=== PATIENT | female | born 1980 | race Hispanic/Latino ===

== ENCOUNTER 2019-08-18 14:28 | Emergency (ER) | payer BC ==
[~2019-08-18] VITALS: Ht 157.5 cm; Wt 79.4 kg
[~2019-08-18 14:28] MED LIST: ATENOLOL50 MG PO; LORTAB 7.5-5001 EACH PO; SERTRALINE HCL50 MG PO; TYLENOL WITH C1 EACH PO
--- OUTSIDE RECORDS SUMMARY | 2019-08-18 14:33 | XMS REPORT | Summary of Care ---
Author Author [facility] Organization 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 [address] [address]- [phone] Vital Signs No data available for this section Problem List Condition Effective Dates Status Health Status Informant OAB (overactive Active bladder)(Confirmed) BMI Active 32.0-32.9,adult(Conf irmed) Body mass index Active (BMI) 31.0-31.9, adult(Confirmed) Hypertension(Confirm Active ed) Hypertriglyceridemia Active (Confirmed) Anxiety and Active depression(Confirmed ) Urinary Active incontinence(Confirm ed) Allergies, Adverse Reactions, Alerts No Known Medication Allergies Medications No data available for this section Results No data available for this section Immunizations Given and Recorded Vaccine Date Status Refusal Reason influenza virus vaccine, inactivated1 10/14/18 Given 1Result Comment: Patient wait 15 min with no reaction. Procedures Procedure Date Related Diagnosis Body Site Status Laparoscopic cholecystectomy 05/25/18 Completed Papanicolaou smear taken 03/25/18 Completed Repair of incisional hernia 2016 Completed Total hysterectomy 04/25/15 Completed Social History Social History Type Response Exercise Exercise type: Walking. 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 Smoking Status Former smoker; Exposure to Tobacco Smoke None; Cigarette Smoking Last 365 Days No; Reg Smoking Cessation Counseling No entered on: 03/30/19 Assessment and Plan No data available for this section
--- OUTSIDE RECORDS SUMMARY | 2019-08-18 14:33 | XMS REPORT | Summary of Care ---
Author Author [facility] Organization [facility] Address Unknown Phone Unavailable Encounter EDNA Morgan(MIGUEL A) [id number] Date(s): 04/28/18 - 04/28/18 [facility] [address] [place] [address]- [phone] Discharge Disposition: Home or Self Care Attending Physician: Lillian Killian DO Referring Physician: Lillian Killian DO Vital Signs No data available for this section Problem List Condition Effective Dates Status Health Status Informant OAB (overactive Active bladder)(Confirmed) BMI Active 32.0-32.9,adult(Conf irmed) Hypertension(Confirm Active ed) Hypertriglyceridemia Active (Confirmed) Depression(Confirmed Active ) Vaginal Active itching(Confirmed) Umbilical Active discharge(Confirmed) Urinary Active incontinence(Confirm ed) Allergies, Adverse Reactions, Alerts No data available for this section Medications No data available for this section Results No data available for this section Immunizations No data available for this section Procedures Procedure Date Related Diagnosis Body Site Status Repair of incisional hernia 2015 Completed Total hysterectomy 04/25/15 Completed Papanicolaou smear taken 2014 Completed Social History Social History Type Response Exercise Exercise type: Walking. 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 Smoking Status Former smoker; Exposure to Tobacco Smoke None; Cigarette Smoking Last 365 Days No; Reg Smoking Cessation Counseling No entered on: 04/16/18 Assessment and Plan No data available for this section
--- OUTSIDE RECORDS SUMMARY | 2019-08-18 14:33 | XMS REPORT | Summary of Care ---
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
--- OUTSIDE RECORDS SUMMARY | 2019-08-18 14:33 | XMS REPORT | Summary of Care ---
Author Author [facility] Organization [facility] Address Unknown Phone Unavailable Encounter HQ Encntr_aliyenny(FIN) [id number] Date(s): 03/24/18 - 03/24/18 [facility] [address], [address] [place] [address]- [phone] Attending Physician: Lillian Killian DO Vital Signs No data available for this section Problem List Condition Effective Dates Status Health Status Informant OAB (overactive Active bladder)(Confirmed) BMI Active 32.0-32.9,adult(Conf irmed) Hypertension(Confirm Active ed) Hypertriglyceridemia Active (Confirmed) Depression(Confirmed Active ) Urinary Active incontinence(Confirm ed) Allergies, Adverse Reactions, Alerts Substance Reaction Severity Status azithromycin1 Active 1abd pain, diarrhea Medications No data available for this section Results No data available for this section Immunizations No data available for this section Procedures Procedure Date Related Diagnosis Body Site Status Total hysterectomy 04/25/15 Completed Papanicolaou smear taken 2014 Completed Social History Social History Type Response Exercise Exercise type: Walking. 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 Smoking Status Former smoker; Exposure to Tobacco Smoke None; Cigarette Smoking Last 365 Days No; Reg Smoking Cessation Counseling No entered on: 03/25/18 Assessment and Plan No data available for this section
--- OUTSIDE RECORDS SUMMARY | 2019-08-18 14:33 | XMS REPORT | Summary of Care ---
Author Author [facility] Organization [facility] Address Unknown Phone Unavailable Encounter EDNA Morgan(FIN) [id number] Date(s): 03/25/18 - 03/25/18 [facility] [address], [address] [place] [address]- [phone] Discharge Disposition: Home or Self Care Attending Physician: Lillian Killian DO Vital Signs Most recent to 1 oldest [Reference Range]: Height 152.4 cm (03/25/18 8:10 AM) Temperature Oral 98.0 DegF [96.4-99.1 DegF] (03/25/18 8:10 AM) Blood Pressure 108/74 mmHg [90-140/60-90 mmHg] (03/25/18 8:10 AM) Respiratory Rate 14 BRMIN [14-20 BRMIN] (03/25/18 8:10 AM) Peripheral Pulse 74 bpm Rate [60-100 bpm] (03/25/18 8:10 AM) Weight 75.909 kg (03/25/18 8:10 AM) Body Mass Index 32.68 m2 (03/25/18 8:10 AM) Problem List Condition Effective Dates Status Health Status Informant OAB (overactive Active bladder)(Confirmed) BMI Active 32.0-32.9,adult(Conf irmed) Hypertension(Confirm Active ed) Hypertriglyceridemia Active (Confirmed) Depression(Confirmed Active ) Urinary Active incontinence(Confirm ed) Allergies, Adverse Reactions, Alerts Substance Reaction Severity Status azithromycin1 Active 1abd pain, diarrhea Medications metroNIDAZOLE 500 mg oral tablet 500 mg=1 tab, PO, BID, do not drink alcohol, X 7 day, # 14 tab, 0 Refill(s), Pha rmacy: [facility] Start Date: 03/27/18 Stop Date: 04/03/18 Status: Ordered oxybutynin 5 mg oral tablet 5 mg=1 tab, PO, BID, # 60 tab, 5 Refill(s), Pharmacy: [facility] [place] [facility] Start Date: 03/25/18 Status: Ordered Results No data available for this section [...]
--- OUTSIDE RECORDS SUMMARY | 2019-08-18 14:33 | XMS REPORT | Summary of Care ---
Author Author [facility] Organization [facility] Address Unknown Phone Unavailable Care Team Providers Care Media Relations Intern Name Role Phone Lillian Killian PCP Encounter HQ Cathy([facility]) [id number] Date(s): 03/30/19 - 03/30/19 [facility] [address] [address]- Discharge Disposition: Home or Self Care Attending Physician: Lillian Killian DO Vital Signs Most recent to 1 oldest [Reference Range]: Height 154.94 cm (03/30/19 8:19 AM) Temperature Oral 98.0 DegF [96.4-99.1 DegF] (03/30/19 8:19 AM) Blood Pressure 127/86 mmHg [90-140/60-90 mmHg] (03/30/19 8:19 AM) Respiratory Rate 14 BRMIN [14-20 BRMIN] (03/30/19 8:19 AM) Peripheral Pulse 85 bpm Rate [60-100 bpm] (03/30/19 8:19 AM) Weight 75.909 kg (03/30/19 8:19 AM) Body Mass Index 31.62 m2 (03/30/19 8:19 AM) Problem List Condition Effective Dates Status Health Status Informant OAB (overactive Active bladder)(Confirmed) BMI Active 32.0-32.9,adult(Conf irmed) Body mass index Active (BMI) 31.0-31.9, adult(Confirmed) Hypertension(Confirm Active ed) Hypertriglyceridemia Active (Confirmed) Anxiety and Active depression(Confirmed ) Urinary Active incontinence(Confirm ed) Allergies, Adverse Reactions, Alerts No Known Medication Allergies Medications No Known Medications Results No data available for this section Immunizations Given and Recorded Vaccine Date Status Refusal Reason influenza virus vaccine, inactivated1 10/14/18 Given 1Result Comment: Patient wait 15 min with no reaction. Procedures Procedure Date Related Diagnosis Body Site Status Laparoscopic cholecystectomy 05/25/18 Completed Papanicolaou smear taken 03/25/18 Completed Repair of incisional hernia 2015 Completed Total hysterectomy 04/25/15 Completed Social History [...]
--- OUTSIDE RECORDS SUMMARY | 2019-08-18 14:33 | XMS REPORT | Continuity of Care Document ---
Author Author [facility] Organization [facility] Address Unknown Phone Unavailable Care Team Providers Care Deck Cadet Name Role Phone [facility] Unavailable Unavailable Problems Problem Status Onset Date Classification Date Reported Comments Source UNK Active 05/14/2018 [facility] ABDOMINAL DISCOMFORT Active 04/18/2018 [facility] Bladder muscle dysfunction - overactive (disorder) Active Problem 06/17/2019 [facility] [place] Body mass index 30+ - obesity (finding) Active Problem 06/17/2019 [facility] [place],[facility] Hypertensive disorder, systemic arterial (disorder) Active Problem 06/17/2019 [facility] [place],[facility] Hypertriglyceridemia (disorder) Active Problem 06/17/2019 [facility] [place],[facility] Depressive disorder (disorder) Active Problem 03/21/2019 Medical [facility] Urinary incontinence (finding) Active Problem 06/17/2019 [facility] Pruritus of vagina (disorder) Active Problem 06/05/2018 Medical [facility] Umbilical discharge (finding) Active Problem 06/05/2018 [facility] Mixed anxiety and depressive disorder (disorder) Active Problem 06/17/2019 [facility] [place] Finding of body mass index (finding) Active Problem 06/17/2019 Medical [facility] [place] Medications Medication Details Route Status Patient Instructions Ordering Provider Order Date Source Lidocaine Viscous 2% mucous membrane solution 1 appl, TOP, QID, PRN Mouth Pain, X 7 day, # 1 btl, 0 Refill(s), Pharmacy: [facility] [place] [facility]3 Active 03/18/2019 [facility] Penicillin V Potassium 500 MG Oral Tablet 500 mg=1 tab, PO, Q12H, X 10 day, # 20 tab, 0 Refill(s), Pharmacy: [facility] [place] #3 Active 03/18/2019 [facility] Atenolol 25 MG Oral Tablet =1 tab, PO, Daily, # 90 ea, Refill(s) 1, Pharmacy: [facility] [place] #3 Active 12/18/2018 [facility] Terbinafine hydrochloride 10 MG/ML Topical Cream 1 appl, TOP, BID, X 14 day, # 30 gm, 1 Refill(s), Pharmacy: [facility] [place] #3 No Longer Active 07/27/2018 [facility] ciprofloxacin 500 mg oral tablet 500 mg=1 tab, PO, Q12H, for UTI, X 3 day, # 6 tab, 0 Refill(s), Pharmacy: [facility] [place] #3 No Longer Active 07/22/2018 [facility] Metronidazole 500 MG Oral Tablet 500 mg=1 tab, PO, BID, do not drink alcohol, X 7 day, # 14 tab, 2 Refill(s), Pharmacy: [facility] [place] #3 No Longer Active 07/22/2018 [facility] Ketoconazole 20 MG/ML Topical Cream 1 appl, TOP, Daily, X 6 week, # 30 gm, 1 Refill(s), Pharmacy: [facility] [place] #3 No Longer Active 07/22/2018 [facility] Oxycodone Hydrochloride 5 MG Oral Tablet 10 mg, Route: PO, Drug form: TAB, ONCE, Dosing Weight 75.455, kg, PRN Pain Score 7-10, Start date: 05/25/18 10:45:00 CDT Inactive 05/25/2018 [facility] Naloxone 0.1 mg, Route: SUB-Q, Q6H, Dosing Weight 75.455, kg, PRN Itching, Start date: 05/25/18 10:18:00 CDT, Duration: 30 day, Stop date: 06/24/18 10:17:00 CDT Inactive 05/25/2018 [facility] Ondansetron 4 mg, Route: IVP, ONCE, Dosing Weight 75.455, kg, PRN Nausea & Vomiting, Start date: 05/25/18 10:18:00 CDT Inactive 05/25/2018 [facility] Meperidine 12.5 mg, Route: IVP, Q30Min, Dosing Weight 75.455, kg, PRN Other -See Comment, For shivering, Start date: 05/25/18 10:18:00 CDT, Duration: 2 doses or times, Stop date: Limited # of times Inactive 05/25/2018 [facility] Fentanyl 25 microgram, Route: IVP, Q5Min, Dosing Weight 75.455, kg, PRN Pain Score 4-6, Priority: Routine, Start date: 05/25/18 10:18:00 CDT, Duration: 4 doses or times, Stop date: Limited # of times Inactive 05/25/2018 [facility] Oxycodone 5 mg, Route: NG, Drug form: LIQ, Q4H, Dosing Weight 75.455, kg, PRN Pain Score 4-6, Start date: 05/25/18 10:18:00 CDT, Duration: 30 day, Stop date: 06/24/18 10:17:00 CDT Inactive 05/25/2018 [facility] Albuterol 0.83 MG/ML Inhalant Solution 2.49 mg, Route: NEB, Q20Min, Dosing Weight 75.455, kg, PRN Wheezing, Priority: STAT, Start date: 05/25/18 10:18:00 CDT, Duration: 30 day, Stop date: 06/24/18 10:17:00 CDT Inactive 05/25/2018 [facility] Diphenhydramine 12.5 mg, Route: IVP, Drug form: INJ, Q6H, Dosing Weight 75.455, kg, PRN Itching, Start date: 05/25/18 10:18:00 CDT, Duration: 30 day, Stop date: 06/24/18 10:17:00 CDT Inactive 05/25/2018 [facility] Flumazenil 0.2 mg, Route: IVP, PRN, Dosing Weight 75.455, kg, PRN Benzodiazepine Reversal, Initial dose, Start date: 05/25/18 10:18:00 CDT, Duration: 30 day, Stop date: 06/24/18 10:17:00 CDT Inactive 05/25/2018 [facility] 72 HR Scopolamine 0.0139 MG/HR Transdermal Patch 1 patch, Route: TOP, Drug Form: ERFILM, Dosing Weight 75.455, kg, ONCE, Apply behind ear. Avoid use in elderly., Start date: 05/25/18 10:18:00 CDT, Stop date: 05/25/18 10:18:00 CDT Inactive 05/25/2018 [facility] Promethazine 6.25 mg, Route: IVPB, ONCE, Dosing Weight 75.455, kg, PRN Nausea & Vomiting, Start date: 05/25/18 10:18:00 CDT Inactive 05/25/2018 [facility] Hydromorphone 0.5 mg, Route: IVP, Q5Min, Dosing Weight 75.455, kg, PRN Pain Score 7-10, Start date: 05/25/18 10:18:00 CDT, Duration: 4 doses or times, Stop date: Limited # of times Inactive 05/25/2018 [facility] Acetaminophen 1,000 mg, Route: IVPB, Drug form: INJ, ONCE, Dosing Weight 75.455, kg, PRN Pain Score 1-3, Start date: 05/25/18 10:18:00 CDT Inactive 05/25/2018 [facility] dexamethasone (ANES) Route: IV, Drug form: INJ, ONCE, Stop date: 05/25/18 10:03:00 CDT Inactive 05/25/2018 [facility] ceFAZolin (ANES) Route: IV, Drug form: INJ, ONCE, Stop date: 05/25/18 10:03:00 CDT Inactive 05/25/2018 [facility] rocuronium (ANES) Route: IV, Drug form: INJ, ONCE, Stop date: 05/25/18 10:03:00 CDT Inactive 05/25/2018 [facility] fentaNYL (ANES) Route: IV, Drug form: INJ, ONCE, Stop date: 05/25/18 10:03:00 CDT Inactive 05/25/2018 [facility] propofol (ANES) Route: IV, Drug form: INJ, ONCE, Stop date: 05/25/18 10:03:00 CDT Inactive 05/25/2018 [facility] midazolam (ANES) Route: IV, Drug form: SOLN, ONCE, Stop date: 05/25/18 10:03:00 CDT Inactive 05/25/2018 [facility] lidocaine (ANES) Route: IV, Drug form: INJ, ONCE, Stop date: 05/25/18 10:03:00 CDT Inactive 05/25/2018 [facility] famotidine (ANES) Route: IV, Drug form: INJ, ONCE, Stop date: 05/25/18 10:03:00 CDT Inactive 05/25/2018 [facility] neostigmine (ANES) Route: IV, Drug form: INJ, ONCE, Stop date: 05/25/18 10:03:00 CDT Inactive 05/25/2018 [facility] ketOROLAC (ANES) IV, ONCE Inactive 05/25/2018 [facility] glycopyrrolate (ANES) Route: IV, Drug form: INJ, ONCE, Stop date: 05/25/18 10:03:00 CDT Inactive 05/25/2018 [facility] metoclopramide (ANES) Route: IV, Drug form: INJ, ONCE, Stop date: 05/25/18 10:03:00 CDT Inactive 05/25/2018 [facility] ePHEDrine (ANES) Route: IV, Drug form: INJ, ONCE, Stop date: 05/25/18 10:01:00 CDT Inactive 05/25/2018 [facility] Acetaminophen 300 MG / Codeine Phosphate 30 MG Oral Tablet [Tylenol with Codeine #3] 1 tab, PO, Q6H, PRN pain, X 7 day, # 28 tab, 0 Refill(s) Active 05/25/2018 [facility] Docusate Sodium 100 MG Oral Capsule [Colace] 100 mg=1 cap, PO, BID, PRN Constipation, # 20 cap, 0 Refill(s) Active 05/25/2018 [facility] Lactated Ringers Injection IV (ANES) 1000 mL Route: IV, Total Volume: 1,000, Start date: 05/25/18 8:57:00 CDT, Stop date: 05/25/18 9:57:00 CDT Inactive 05/25/2018 [facility] Lactated Ringers IV 1,000 mL 1,000 mL, Rate: 40 ml/hr, Infuse over: 25 hr, Route: IV, Dosing Weight 75.455 kg, Total Volume: 1,000, Start date: 05/25/18 8:30:00 CDT, Duration: 1 day, Stop date: 05/26/18 8:29:00 CDT, 1.84, m2 Inactive 05/25/2018 [facility] Ancef 2 gm, 100 mL, Route: IVPB, Drug form: INJ, ONCE, Dosing Weight 75.455, kg, Start date: 05/22/18 9:33:00 CDT, Stop date: 05/22/18 9:33:00 CDT, Surgical Prophylaxis Only; For patients Notes: Same as: Ancef Inactive 05/22/2018 [facility] Mupirocin 0.02 MG/MG Topical Ointment 1 appl, TOP, BID, X 7 day, # 22 gm, 1 Refill(s), Pharmacy: [facility] Pharm[facility] [place] #3 Active 04/16/2018 [facility] Clindamycin 20 MG/ML Vaginal Cream 1 appl, VAG, Bedtime, X 7 day, # 40 gm, 1 Refill(s), Pharmacy: [facility] [place] #3 Active 04/16/2018 [facility] Metronidazole 500 MG Oral Tablet 500 mg=1 tab, PO, BID, do not drink alcohol, X 7 day, # 14 tab, 0 Refill(s), Pharmacy: [facility] [place] #3 Active 03/27/2018 [facility] oxybutynin 5 mg oral tablet 5 mg=1 tab, PO, BID, # 60 tab, 5 Refill(s), Pharmacy: [facility] [place] #3 Active 03/25/2018 [facility] Allergies, Adverse Reactions, Alerts Substance Category Reaction Severity Reaction type Status Date Reported Comments Source azithromycin<sup>1</sup> Assertion Drug allergy Active abd pain, diarrhea [facility] No Known Medication Allergies Assertion Drug allergy [facility] Immunizations Immunization Date Given Site Status Last Updated Comments Source influenza virus vaccine, inactivated<sup>1</sup> 10/14/2018 Left Deltoid completed [facility] Result Comment: Patient wait 15 min with no reaction. [facility], [facility] Results Order Name Results Value Reference Range Date Interpretation Comments Source CHEM PANEL A/G Ratio 0.9 0.7 - 1.6 05/22/2018 [facility] CHEM PANEL Globulin 4.5 2.7 - 4.2 05/22/2018 [facility] CHEM PANEL B/C Ratio 22 6 - 25 05/22/2018 [facility] CHEM PANEL AGAP 11.4 10.0 - 20.0 05/22/2018 [facility] CHEM PANEL eGFR 123 05/22/2018 Result Comment: The eGFR is calculated using the CKD-EPI formula. In most young, healthy individuals the eGFR will be >90 mL/min/1.73m2. The eGFR declines with age. An eGFR of 60-89 may be normal in some populations, particularly the elderly, for whom the CKD-EPI formula has not been extensively validated. Use of the eGFR is not recommended in the following populations:

Individuals with unstable creatinine concentrations, including patients and those with serious co-morbid conditions.

Patients with extremes in muscle mass or diet.

The data above are obtained from the National Kidney Disease Education Program (NKDEP) which additionally recommends that when the eGFR is used in patients with extremes of body mass index for purposes of drug dosing, the eGFR should be multiplied by the estimated BMI. [facility] CHEM PANEL Glucose Lvl 94 70 - 99 05/22/2018 [facility] CHEM PANEL Total Protein 8.4 6.4 - 8.4 05/22/2018 [facility] CHEM PANEL Calcium Lvl 9.5 8.5 - 10.5 05/22/2018 [facility] CHEM PANEL Chloride Lvl 106 95 - 109 05/22/2018 [facility] CHEM PANEL CO2 28 24 - 32 05/22/2018 [facility] CHEM PANEL Sodium Lvl 141 135 - 145 05/22/2018 [facility] CHEM PANEL Potassium Lvl 4.4 3.5 - 5.1 05/22/2018 [facility] CHEM PANEL Creatinine Lvl 0.50 0.50 - 1.40 05/22/2018 [facility] CHEM PANEL BUN 11 7 - 22 05/22/2018 [facility] CHEM PANEL Albumin Lvl 3.9 3.5 - 5.0 05/22/2018 [facility] CHEM PANEL AST 13 0 - 37 05/22/2018 [facility] CHEM PANEL Alk Phos 101 39 - 136 05/22/2018 [facility] CHEM PANEL ALT 15 0 - 65 05/22/2018 [facility] CHEM PANEL Bili Total 0.3 0.2 - 1.3 05/22/2018 [facility] HEMATOLOGY Monocytes # 0.7 0.0 - 0.8 05/22/2018 [facility] HEMATOLOGY Basophils # 0.1 0.0 - 0.2 05/22/2018 [facility] HEMATOLOGY Eosinophils # 0.2 0.0 - 0.5 05/22/2018 [facility] HEMATOLOGY Lymphocytes # 2.8 1.0 - 5.5 05/22/2018 [facility] HEMATOLOGY Segs-Bands # 8.0 1.5 - 8.1 05/22/2018 [facility] HEMATOLOGY Segs 68.3 45.0 - 75.0 05/22/2018 [facility] Basophils 0.5 0.0 - 1.0 05/22/2018 [facility] Eosinophils 1.7 0.0 - 4.0 05/22/2018 [facility] Monocytes 5.8 2.0 - 12.0 05/22/2018 [facility] Lymphocytes 23.7 20.0 - 40.0 05/22/2018 [facility] WBC 11.7 3.7 - 10.4 05/22/2018 [facility] Hct 41.3 36.0 - 48.0 05/22/2018 [facility] Hgb 13.9 12.0 - 16.0 05/22/2018 [facility] RBC 4.71 4.20 - 5.40 05/22/2018 [facility] MCV 87.7 80.0 - 98.0 05/22/2018 [facility] MCHC 33.6 32.0 - 36.0 05/22/2018 [facility] MCH 29.4 27.0 - 31.0 05/22/2018 [facility] RDW 12.9 11.5 - 14.5 05/22/2018 [facility] MPV 7.4 7.4 - 10.4 05/22/2018 [facility] Platelet 366 133 - 450 05/22/2018 [facility] Pathology Reports No Data Provided for This Section Diagnostic Reports Report Value Date Source Breast Mammo Scrn CHERI incl CAD MA BILATERAL FIRST EVER DIGITAL SCREENING MAMMOGRAM WITH CAD: 06/12/2019 Current study was evaluated with a Computer Aided Detection (CAD) system. COMPARISON:No prior exams were available for comparison. TECHNIQUE: Mammographic views were obtained using digital acquisition. Current study was also evaluated with a Computer Aided Detection (CAD) system. FINDINGS: There are scattered fibroglandular densities in both breasts. No significant masses, calcifications, or other findings are seen in either breast. IMPRESSION: NEGATIVE RECOMMENDATION:There is no mammographic evidence of malignancy. A 1 year screening mammogram is recommended.(06/12/2020) This exam was interpreted at [id number] for YOSSI Mccartney 15. Professional services are provided by the [facility]. Kacy Villela M.D., ms/jodie:06/14/2019 08:55:30 Event Marketing Assistant(s): RT Tod(R)(M), [facility] letter sent: BI-RADS 1/2 Mammogram BI-RADS: 1 Negative 06/12/2019 [facility] Abdomen complete US Clinical Indication: Abdominal pain; Comparison: None TECHNIQUE: Grayscale and limited color sonographic evaluation of the abdomen was performed with standard technique. FINDINGS: LIVER: The visualized liver shows normal contour, size, and morphology with normal parenchymal echo texture. BILE DUCTS: The intrahepatic and extrahepatic bile ducts are not dilated with the common bile duct measuring 3 mm. The distal common bile duct is not well seen. GALLBLADDER: Cholelithiasis. There is no pericholecystic fluid or wall thickening. PANCREAS: The visualized pancreas appears unremarkable.. SPLEEN: The spleen is unremarkable and measures 9 cm. KIDNEY: The right kidney measures 10.6 cm. The left kidney measures 10.7 cm. There is normal renal contour and morphology, with normal parenchymal echotexture. There is no hydronephrosis. AORTA AND INFERIOR VENA CAVA: Visualized portions appear unremarkable. ASCITES: There is no right abdominal ascites. IMPRESSION: 1. Cholelithiasis without sonographic evidence of acute cholecystitis. 2. No other sonographic abnormalities of the abdomen. SL: [id number] 04/28/2018 [facility] Consultation Notes No Data Provided for This Section Discharge Summaries No Data Provided for This Section History and Physicals No Data Provided for This Section Vital Signs Vital Sign Value Date Comments Source BMI Calculated 31.62 03/30/2019 [facility] Weight 75.909 03/30/2019 [facility] Height 154.94 cm 03/30/2019 [facility] Respitory Rate 14 03/30/2019 [facility] Heart Rate 85 03/30/2019 [facility] Temperature Oral (F) 98.0 F 03/30/2019 [facility] Systolic (mm Hg) 127 03/30/2019 [facility] Diastolic (mm Hg) 86 03/30/2019 [facility] Height 154.94 cm 03/18/2019 [facility] Weight 76.818 03/18/2019 [facility] BMI Calculated 32 03/18/2019 [facility] Respitory Rate 15 03/18/2019 [facility] Temperature Oral (F) 98.5 F 03/18/2019 [facility] Heart Rate 97 03/18/2019 [facility] Systolic (mm Hg) 123 03/18/2019 [facility] Diastolic (mm Hg) 86 03/18/2019 [facility] Heart Rate 93 10/14/2018 [facility] Temperature Oral (F) 97.7 F 10/14/2018 [facility] Respitory Rate 14 10/14/2018 [facility] BMI Calculated 30.48 10/14/2018 [facility] Weight 73.182 10/14/2018 [facility] Systolic (mm Hg) 128 10/14/2018 [facility] Diastolic (mm Hg) 87 10/14/2018 [facility] Height 154.94 cm 10/14/2018 [facility] Weight 73.182 07/22/2018 [facility] BMI Calculated 30.48 07/22/2018 [facility] Height 154.94 cm 07/22/2018 [facility] Respitory Rate 14 07/22/2018 [facility] Temperature Oral (F) 98.2 F 07/22/2018 [facility] Systolic (mm Hg) 135 07/22/2018 [facility] Diastolic (mm Hg) 88 07/22/2018 [facility] Heart Rate 92 07/22/2018 [facility] Weight 75.057 06/02/2018 [facility] Height 154.94 cm 06/02/2018 [facility] BMI Calculated 31.27 06/02/2018 [facility] Systolic (mm Hg) 116 06/02/2018 [facility] Diastolic (mm Hg) 81 06/02/2018 [facility] Heart Rate 72 06/02/2018 [facility] Temperature Oral (F) 97.9 F 06/02/2018 [facility] Systolic (mm Hg) 124 05/25/2018 [facility] Diastolic (mm Hg) 70 05/25/2018 [facility] Systolic (mm Hg) 114 05/25/2018 [facility] Diastolic (mm Hg) 69 05/25/2018 [facility] Systolic (mm Hg) 117 05/25/2018 [facility] Diastolic (mm Hg) 70 05/25/2018 [facility] Respitory Rate 17 05/25/2018 [facility] Respitory Rate 17 05/25/2018 [facility] Respitory Rate 14 05/25/2018 [facility] Temperature Oral (F) 98.2 F 05/22/2018 [facility] Heart Rate 76 05/22/2018 [facility] Weight 75.455 05/22/2018 [facility] Height 157.48 cm 05/22/2018 [facility] BMI Calculated 30.43 05/22/2018 [facility] Temperature Oral (F) 98.0 F 05/14/2018 [facility] Heart Rate 75 05/14/2018 [facility] Weight 76.364 05/14/2018 [facility] BMI Calculated 31.81 05/14/2018 [facility] Systolic (mm Hg) 130 05/14/2018 [facility] Diastolic (mm Hg) 83 05/14/2018 [facility] Height 154.94 cm 05/14/2018 [facility] Respitory Rate 14 04/16/2018 [facility] Temperature Oral (F) 97.8 F 04/16/2018 [facility] Heart Rate 81 04/16/2018 [facility] Height 157.48 cm 04/16/2018 [facility] BMI Calculated 30.45 04/16/2018 [facility] Weight 75.511 04/16/2018 [facility] Systolic (mm Hg) 122 04/16/2018 [facility] Diastolic (mm Hg) 86 04/16/2018 [facility] Height 152.4 cm 03/25/2018 [facility] Weight 75.909 03/25/2018 [facility] BMI Calculated 32.68 03/25/2018 [facility] Heart Rate 74 03/25/2018 [facility] Temperature Oral (F) 98.0 F 03/25/2018 [facility] Systolic (mm Hg) 108 03/25/2018 [facility] Diastolic (mm Hg) 74 03/25/2018 [facility] Respitory Rate 14 03/25/2018 [facility] Encounters Location Location Details Encounter Type Encounter Number Reason For Visit Attending Provider ADM Date DC Date Status Source Outpatient [id number] LANRE JOSEPH 03/24/2017 Active [facility] Outpatient [id number] LANRE GARCIAH 06/20/2017 Active [facility] Outpatient [id number] LANRE GARCIAH 03/24/2018 Active [facility] [id number] Lanre Garciah 03/24/2018 03/24/2018 [facility] Outpatient [id number] LANRE GARCIAH 03/25/2018 Active [facility] Outpatient [id number] Lanre Garciah 03/25/2018 03/26/2018 [facility] Outpatient [id number] LANRE GARCIAH 04/16/2018 Active [facility] Outpatient [id number] Lanre Garciah 04/16/2018 04/17/[address] [facility] Outpatient [id number] Lanre Joseph 04/28/2018 04/29/2018 [facility] Primary Care [facility] Phone Message [phone] 05/01/2018 05/02/2018 [facility] Outpatient [id number] THOMAS LE 05/14/2018 Active [facility] General Surgery [facility] Outpatient [id number] Thomas Le 05/14/2018 05/15/2018 [facility] Outpatient [id number] THOMAS ANDRADE 05/25/2018 Active [facility] Day Surgery [id number] Guzman Le 05/25/2018 05/25/2018 [facility] Outpatient [id number] GUZMAN LE 06/02/2018 Active [facility] Outpatient [id number] Guzman Lupe 06/02/2018 06/03/2018 [facility] Outpatient [id number] LANRE JOSEPH 07/22/2018 Active [facility] Primary Care [facility] Outpatient [id number] Lanre Joseph 07/22/2018 07/23/2018 [facility] Outpatient [id number] LANRE JOSEPH 10/14/2018 Active [facility] Primary Care [facility] Outpatient [id number] Lanre Joseph 10/14/2018 10/15/2018 [facility] Outpatient [id number] Lanre Joseph 03/18/2019 Active [facility] Primary Care [facility] Outpatient [id number] Lanre Joseph 03/18/2019 03/19/2019 [facility] Outpatient [id number] Lanre Joseph 03/30/2019 Active [facility] Primary Care [facility] Outpatient [id number] Lanre Joseph 03/30/2019 03/31/2019 [facility] Primary Care [facility] Between Visit [id number] 03/31/2019 04/01/2019 [facility] [place] Between Visit [id number] 04/03/2019 04/04/2019 [facility] [place] [facility] Diag Services [id number] Lanre Joseph 06/12/2019 06/13/2019 [facility] [place] [facility] [place] Between Visit [id number] 06/14/2019 06/15/2019 [facility] Procedures Procedure Code Date Perfomer Comments Source Laparoscopic cholecystectomy [id number] 05/25/2018 [facility], [facility] Papanicolaou smear taken [id number] 03/25/2018 [facility], [facility], [place] Repair of incisional hernia [id number] 12/01/2015 [facility], [facility] Foss, [place] Total hysterectomy [id number] 04/25/2015 [facility], [facility] Assessment and Plan Assessment and Plan Date Source Extracted from:Title: Clinical Document Author: Thomas Andrade MD Date: 05/25/18 DATE OF PROCEDURE: 05/25/2018. PREOPERATIVE DIAGNOSIS: Symptomatic gallstone. POSTOPERATIVE DIAGNOSIS: Symptomatic gallstone. TECHNICAL PROCEDURE PERFORMED: Laparoscopic cholecystectomy. SURGEON: Thomas Andrade M.D. ANESTHESIA: General endotracheal. SURGICAL WOUND CLASSIFICATION: Clean contaminate. OPERATIVE TIME: 30 minutes. ESTIMATED BLOOD LOSS: Minimal. FLUID REPLACEMENT: Per anesthesia. SPECIMENS SENT FOR PATHOLOGY: Gallbladder. COMPLICATIONS: None. FINDINGS: 1. Gallstones. 2. Well-visualized critical view. CONDITION: To recovery, stable. POSTOPERATIVE PLAN: To the floor INDICATIONS: A 37-year-old lady that presented to my general surgery clinic with abdominal pain. At this time, the history and physical as well as laboratory studies was consistent with diagnosis of symptomatic gallstones, therefore, the option of laparoscopic versus open cholecystectomy was offered to the patient. Risks and benefits of the procedure were explained and the patient voiced understanding and consented to procedure. OPERATIVE NARRATIVE: Patient was taken the operating room, placed on the operating table, intubated by anesthesia. The abdomen was prepped and draped in the usual sterile fashion. A timeout was called and the correct patient, as well as procedure was verified. The patient had SCDs on for thromboembolic prophylaxis and received antibiotics within 1 hour of the incision. Due to her history of previous umbilical hernia repair with mesh, we accessed the abdomen through the right upper quadrant using a 5 mm [employer] first entry trocar under direct visualization. CO2 gas was insufflated until 15 mmHg was achieved. A 1 cm trocar was then placed in the epigastrium and 0.5 cm trochars were placed at the umbilicus and right para umbilical regions. The gallbladder was identified. It was grasped at the fundus and retracted to the head, infundibulum was identified, grasped and retracted towards the legs, exposing the triangle of Calot. The cystic duct was identified, it was dissected out from all surrounding structures, clipped proximally 3 times, distally once, transected in between. Of note, a well visualized critical view was identified; therefore we bypassed cholangiogram. The dissection continued to identify the cystic artery, it was dissected out from all surrounding structures, clipped proximally twice, distally once, and transected in between. The gallbladder was then elevated off the liver bed using electrocautery. It was placed in the Endopouch bag and removed from the abdomen through the epigastric port. The liver bed was inspected, all residual bleeding was identified and controlled. The abdomen was irrigated with copious amounts water until clear return was achieved. The patient was placed flat and all residual irrigation was suctioned out. The pneumoperitoneum was decompressed and the fascia at the epigastric port site was closed using 0 Vicryl in a [id number] manner, and the skin was closed using 4-0 Monocryl in running subcuticular manner. The skin in the 5-mm ports were closed using 4-0 Monocryl in simple U-stitch manner. The patient was extubated in the operating room and transferred to recovery in stable condition. All instrument and laparotomy counts were correct. 05/25/2018 [facility] Plan of Care No Data Provided for This Section Social History Social History Date Source Social History TypeResponse Exercise Exercise type: Walking. 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 Smoking Status Former smoker; Exposure to Tobacco Smoke None; Cigarette Smoking Last 365 Days No; Reg Smoking Cessation Counseling No entered on: 03/30/19 03/25/2018 [facility] Social History TypeResponse Exercise Exercise type: Walking. 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 Smoking Status Former smoker; Exposure to Tobacco Smoke None; Cigarette Smoking Last 365 Days No; Reg Smoking Cessation Counseling No entered on: 05/22/18 03/25/2018 [facility] Social History TypeResponse Exercise Exercise type: Walking. 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 Smoking Status Former smoker; Exposure to Tobacco Smoke None; Cigarette Smoking Last 365 Days No; Reg Smoking Cessation Counseling No entered on: 03/30/19 03/25/2018 [facility] Family History No Data Provided for This Section Advance Directives No Data Provided for This Section Functional Status No Data Provided for This Section
--- OUTSIDE RECORDS SUMMARY | 2019-08-18 14:33 | XMS REPORT | Summary of Care ---
Author Author [facility] Organization [facility] Address Unknown Phone Unavailable Encounter HQ Cathy(FIN) [id number] Date(s): 10/14/18 - 10/14/18 [facility] [address] [facility] [address] [place] [address]- Discharge Disposition: Home or Self Care Attending Physician: Lillian Killian DO Vital Signs Most recent to 1 oldest [Reference Range]: Height 154.94 cm (10/14/18 1:17 PM) Temperature Oral 97.7 DegF [96.4-99.1 DegF] (10/14/18 1:17 PM) Blood Pressure 128/87 mmHg [90-140/60-90 mmHg] (10/14/18 1:17 PM) Respiratory Rate 14 BRMIN [14-20 BRMIN] (10/14/18 1:17 PM) Peripheral Pulse 93 bpm Rate [60-100 bpm] (10/14/18 1:17 PM) Weight 73.182 kg (10/14/18 1:17 PM) Body Mass Index 30.48 m2 (10/14/18 1:17 PM) Problem List Condition Effective Dates Status Health Status Informant OAB (overactive Active bladder)(Confirmed) BMI Active 32.0-32.9,adult(Conf irmed) Body mass index Active (BMI) 31.0-31.9, adult(Confirmed) Hypertension(Confirm Active ed) Hypertriglyceridemia Active (Confirmed) Anxiety and Active depression(Confirmed ) Urinary Active incontinence(Confirm ed) Allergies, Adverse Reactions, Alerts No Known Medication Allergies Medications atenolol 25 mg oral tablet =1 tab, PO, Daily, # 90 ea, Refill(s) 1, Pharmacy: [facility] Pharmacy [place] #3 Start Date: 12/18/18 Status: Ordered Results No data available for [...]
--- OUTSIDE RECORDS SUMMARY | 2019-08-18 14:33 | XMS REPORT | Summary of Care ---
Author Author [facility] Organization [facility] Address Unknown Phone Unavailable Care Team Providers Care [employer] D[employer] Name Role Phone Lillian Killian PCP Encounter HQ Rabiantr_malgorzata(FIN) [id number] Date(s): 04/03/19 - 04/04/19 [facility] [address] [address]- [phone] Vital Signs No data available for this [...]
--- OUTSIDE RECORDS SUMMARY | 2019-08-18 14:33 | XMS REPORT | Summary of Care ---
Author Author [facility] Organization [facility] Address Unknown Phone Unavailable Encounter EDNA Morgan(FIN) [id number] Date(s): 04/16/18 - 04/16/18 [facility] [address] [facility], [address] [place] [address]- [phone] Discharge Disposition: Home or Self Care Attending Physician: Lillian Killian DO Vital Signs Most recent to 1 oldest [Reference Range]: Height 157.48 cm (04/16/18 7:54 AM) Temperature Oral 97.8 DegF [96.4-99.1 DegF] (04/16/18 7:54 AM) Blood Pressure 122/86 mmHg [90-140/60-90 mmHg] (04/16/18 7:54 AM) Respiratory Rate 14 BRMIN [14-20 BRMIN] (04/16/18 7:54 AM) Peripheral Pulse 81 bpm Rate [60-100 bpm] (04/16/18 7:54 AM) Weight 75.511 kg (04/16/18 7:54 AM) Body Mass Index 30.45 m2 (04/16/18 7:54 AM) Problem List Condition Effective Dates Status Health Status Informant OAB (overactive Active bladder)(Confirmed) BMI Active 32.0-32.9,adult(Conf irmed) Hypertension(Confirm Active ed) Hypertriglyceridemia Active (Confirmed) Depression(Confirmed Active ) Vaginal Active itching(Confirmed) Umbilical Active discharge(Confirmed) Urinary Active incontinence(Confirm ed) Allergies, Adverse Reactions, Alerts No data available for this section Medications clindamycin 2% vaginal cream 1 appl, VAG, Bedtime, X 7 day, # 40 gm, 1 Refill(s), Pharmacy: [facility] Start Date: 04/16/18 Stop Date: 04/30/18 Status: Ordered mupirocin topical 2% ointment 1 appl, TOP, BID, X 7 day, # 22 gm, 1 Refill(s), Pharmacy: [facility] Pharm[facility] [place] [facility] Start Date: 04/16/18 Stop Date: 04/30/18 Status: Ordered Results No data available for [...]
--- OUTSIDE RECORDS SUMMARY | 2019-08-18 14:34 | XMS REPORT | Summary of Care ---
Author Author [facility] Organization [facility] Address Unknown Phone Unavailable Encounter HQ Cathy(MIGUEL A) [id number] Date(s): 03/18/19 - 03/18/19 [facility] [address] [facility] [address] [place] [address]- Discharge Disposition: Home or Self Care Attending Physician: Lillian Killian DO Vital Signs Most recent to 1 oldest [Reference Range]: Height 154.94 cm (03/18/19 10:20 AM) Temperature Oral 98.5 DegF [96.4-99.1 DegF] (03/18/19 10:20 AM) Blood Pressure 123/86 mmHg [90-140/60-90 mmHg] (03/18/19 10:20 AM) Respiratory Rate 15 BRMIN [14-20 BRMIN] (03/18/19 10:20 AM) Peripheral Pulse 97 bpm Rate [60-100 bpm] (03/18/19 10:20 AM) Weight 76.818 kg (03/18/19 10:20 AM) Body Mass Index 32 m2 (03/18/19 10:20 AM) Problem List Condition Effective Dates Status Health Status Informant OAB (overactive Active bladder)(Confirmed) BMI Active 32.0-32.9,adult(Conf irmed) Hypertension(Confirm Active ed) Hypertriglyceridemia Active (Confirmed) Anxiety and Active depression(Confirmed ) Depression(Confirmed Active ) Urinary Active incontinence(Confirm ed) Allergies, Adverse Reactions, Alerts Substance Reaction Severity Status NKDA Active Medications Lidocaine Viscous 2% mucous membrane solution 1 appl, TOP, QID, PRN Mouth Pain, X 7 day, # 1 btl, 0 Refill(s), Pharmacy: [facility] Start Date: 03/18/19 Stop Date: 03/25/19 Status: Ordered penicillin V potassium 500 mg oral tablet 500 mg=1 tab, PO, Q12H, X 10 day, # 20 tab, 0 Refill(s), Pharmacy: [facility] Pharm[facility] [place] [facility] Start Date: 03/18/19 Stop Date: 03/28/19 Status: Ordered Results No data available for this section Immunizations Given and Recorded Vaccine Date Status Refusal Reason influenza virus vaccine, inactivated1 10/14/18 Given 1Result Comment: Patient wait 15 min with no reaction. Procedures Procedure Date Related Diagnosis Body Site Status Laparoscopic cholecystectomy 05/25/18 Completed Repair of incisional hernia 2015 Completed Total hysterectomy 04/25/15 Completed Papanicolaou smear taken 2014 Completed Social History Social History Type Response Exercise Exercise type: Walking. 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 Smoking Status Former smoker; Exposure to Tobacco Smoke None; Cigarette Smoking Last 365 Days No; Reg Smoking Cessation Counseling No entered on: 03/18/19 Assessment and Plan No data available for this section
--- OUTSIDE RECORDS SUMMARY | 2019-08-18 14:34 | XMS REPORT | Summary of Care ---
Author Author [facility] Organization [facility] Address Unknown Phone Unavailable Encounter EDNA Morgan(FIN) [id number] Date(s): 07/22/18 - 07/22/18 [facility] [address] [facility], [address] [place] [address]- [phone] Discharge Disposition: Home or Self Care Attending Physician: Lillian Killian DO Vital Signs Most recent to 1 oldest [Reference Range]: Height 154.94 cm (07/22/18 9:21 AM) Temperature Oral 98.2 DegF [96.4-99.1 DegF] (07/22/18 9:21 AM) Blood Pressure 135/88 mmHg [90-140/60-90 mmHg] (07/22/18 9:21 AM) Respiratory Rate 14 BRMIN [14-20 BRMIN] (07/22/18 9:21 AM) Peripheral Pulse 92 bpm Rate [60-100 bpm] (07/22/18 9:21 AM) Weight 73.182 kg (07/22/18 9:21 AM) Body Mass Index 30.48 m2 (07/22/18 9:21 AM) Problem List Condition Effective Dates Status Health Status Informant OAB (overactive Active bladder)(Confirmed) BMI Active 32.0-32.9,adult(Conf irmed) Hypertension(Confirm Active ed) Hypertriglyceridemia Active (Confirmed) Anxiety and Active depression(Confirmed ) Depression(Confirmed Active ) Urinary Active incontinence(Confirm ed) Allergies, Adverse Reactions, Alerts Substance Reaction Severity Status NKDA Active Medications ciprofloxacin 500 mg oral tablet 500 mg=1 tab, PO, Q12H, for UTI, X 3 day, # 6 tab, 0 Refill(s), Pharmacy: [facility] Start Date: 07/22/18 Stop Date: 07/25/18 Status: Completed ketoconazole topical 2% cream 1 appl, TOP, Daily, X 6 week, # 30 gm, 1 Refill(s), Pharmacy: [facility] Pharmacy [place] [facility] #3 Start Date: 07/22/18 Stop Date: 10/14/18 Status: Completed metroNIDAZOLE 500 mg oral tablet 500 mg=1 tab, PO, BID, do not drink alcohol, X 7 day, # 14 tab, 2 Refill(s), Pha rmacy: [facility] Pharmacy [place] #3 Start Date: 07/22/18 Stop Date: 08/12/18 Status: Completed terbinafine topical 1% cream 1 appl, TOP, BID, X 14 day, # 30 gm, 1 Refill(s), Pharmacy: [facility] Pharm[facility] [place] [facility] Start Date: 07/26/18 Stop Date: 08/23/18 Status: Completed Results No data available for this section [...] Reg Smoking Cessation Counseling No entered on: 10/14/18 Assessment and Plan No data available for this section
--- OUTSIDE RECORDS SUMMARY | 2019-08-18 14:34 | XMS REPORT | Summary of Care ---
Author Author [facility] Organization [facility] Address Unknown Phone Unavailable Encounter HQ Cathy(FIN) [id number] Date(s): 05/14/18 - 05/14/18 [facility] [address] [address] [facility], [facility] [address] [place] [address]- [phone] Discharge Disposition: Home or Self Care Attending Physician: Thomas Andrade MD Referring Physician: Lillian Killian DO Vital Signs Most recent to 1 oldest [Reference Range]: Height 154.94 cm (05/14/18 9:35 AM) Temperature Oral 98.0 DegF [96.4-99.1 DegF] (05/14/18 9:35 AM) Blood Pressure 130/83 mmHg [90-140/60-90 mmHg] (05/14/18 9:35 AM) Peripheral Pulse 75 bpm Rate [60-100 bpm] (05/14/18 9:35 AM) Weight 76.364 kg (05/14/18 9:35 AM) Body Mass Index 31.81 m2 (05/14/18 9:35 AM) Problem List Condition Effective Dates Status Health Status Informant OAB (overactive Active bladder)(Confirmed) BMI Active 32.0-32.9,adult(Conf irmed) Hypertension(Confirm Active ed) Hypertriglyceridemia Active (Confirmed) Depression(Confirmed Active ) Vaginal Active itching(Confirmed) Umbilical Active discharge(Confirmed) Urinary Active incontinence(Confirm ed) Allergies, Adverse Reactions, Alerts Substance Reaction Severity Status NKDA Active Medications No Known Medications Results No data [...] Reg Smoking Cessation Counseling No entered on: 05/14/18 Assessment and Plan No data available for this section
--- OUTSIDE RECORDS SUMMARY | 2019-08-18 14:34 | XMS REPORT | Summary of Care ---
Author Author [facility] General Surgery [facility] Organization [facility] General Surgery [facility] Address Unknown Phone Unavailable Encounter HQ Cathy(FIN) [id number] Date(s): 06/02/18 - 06/02/18 [facility] General Surgery [facility] [address] [address] [facility], [facility] [address] [place] [address]- [phone] Discharge Disposition: Home or Self Care Attending Physician: Thomas Andrade MD Referring Physician: Lillian Killian DO Vital Signs Most recent to 1 oldest [Reference Range]: Height 154.94 cm (06/02/18 9:33 AM) Temperature Oral 97.9 DegF [96.4-99.1 DegF] (06/02/18 9:33 AM) Blood Pressure 116/81 mmHg [90-140/60-90 mmHg] (06/02/18 9:33 AM) Peripheral Pulse 72 bpm Rate [60-100 bpm] (06/02/18 9:33 AM) Weight 75.057 kg (06/02/18 9:33 AM) Body Mass Index 31.27 m2 (06/02/18 9:33 AM) Problem List Condition Effective Dates Status Health Status Informant OAB (overactive Active bladder)(Confirmed) BMI Active 32.0-32.9,adult(Conf irmed) Hypertension(Confirm Active ed) Hypertriglyceridemia Active (Confirmed) Anxiety and Active depression(Confirmed ) Depression(Confirmed Active ) Vaginal Active itching(Confirmed) Umbilical [...] Reg Smoking Cessation Counseling No entered on: 06/02/18 Assessment and Plan No data available for this section
--- OUTSIDE RECORDS SUMMARY | 2019-08-18 14:34 | XMS REPORT | Summary of Care ---
Author Author [facility] Organization [facility] Address Unknown Phone Unavailable Encounter HQ Cathy(MIGUEL A) [id number] Date(s): 05/25/18 - 05/25/18 [facility] [address] [place] [address]- Discharge Disposition: Home or Self Care Attending Physician: Thomas Andrade MD Referring Physician: Thomas Andrade MD Vital Signs 1 2 3 Most recent to oldest [Reference Range]: 157.48 cm (05/22/18 9:32 AM) Height 98.2 DegF (05/22/18 9:33 AM) Temperature Oral [96.4-99.1 DegF] 124/70 mmHg (05/25/18 11:30 AM) 114/69 mmHg (05/25/18 10:45 AM) 117/70 mmHg (05/25/18 10:30 AM) Blood Pressure [90-140/60-90 mmHg] 17 BRMIN (05/25/18 10:30 AM) 17 BRMIN (05/25/18 10:15 AM) 14 BRMIN (05/25/18 10:00 AM) Respiratory Rate [14-20 BRMIN] 76 bpm (05/22/18 9:33 AM) Peripheral Pulse Rate [60-100 bpm] 75.455 kg (05/22/18 9:32 AM) Weight 30.43 m2 (05/22/18 9:32 AM) Body Mass Index Problem List Condition Effective Dates Status Health Status Informant OAB (overactive Active bladder)(Confirmed) BMI Active 32.0-32.9,adult(Conf irmed) Hypertension(Confirm Active ed) Hypertriglyceridemia Active (Confirmed) Anxiety and Active depression(Confirmed ) Depression(Confirmed Active ) Vaginal Active itching(Confirmed) Umbilical Active discharge(Confirmed) Urinary Active incontinence(Confirm ed) Allergies, Adverse Reactions, Alerts Substance Reaction Severity Status NKDA Active Medications Ancef 2 gm, 100 mL, Route: IVPB, Drug form: INJ, ONCE, Dosing Weight 75.455, kg, Start date: 05/22/18 9:33:00 CDT, Stop date: 05/22/18 9:33:00 CDT, Surgical Prophylax is Only; For patients < 120 kg, ABX Indication: Surgical Prophylaxis Notes: Same as: Ancef Start Date: 05/22/18 Stop Date: 05/22/18 Status: Ordered ANES acetaminophen 1,000 mg, Route: IVPB, Drug form: INJ, ONCE, Dosing Weight 75.455, kg, PRN Pain Score 1-3, Start date: 05/25/18 10:18:00 CDT Start Date: 05/25/18 Stop Date: 05/25/18 Status: Discontinued ANES albuterol 0.083% inhalation solution 2.49 mg, Route: NEB, Q20Min, Dosing Weight 75.455, kg, PRN Wheezing, Priority: S TAT, Start date: 05/25/18 10:18:00 CDT, Duration: 30 day, Stop date: 06/24/18 10 :17:00 CDT Start Date: 05/25/18 Stop Date: 05/25/18 Status: Discontinued ANES diphenhydrAMINE 12.5 mg, Route: IVP, Drug form: INJ, Q6H, Dosing Weight 75.455, kg, PRN Itching, Start date: 05/25/18 10:18:00 CDT, Duration: 30 day, Stop date: 06/24/18 10:17: 00 CDT Start Date: 05/25/18 Stop Date: 05/25/18 Status: Discontinued ANES fentaNYL 25 microgram, Route: IVP, Q5Min, Dosing Weight 75.455, kg, PRN Pain Score 4-6, P riority: Routine, Start date: 05/25/18 10:18:00 CDT, Duration: 4 doses or times, Stop date: Limited # of times Start Date: 05/25/18 Stop Date: 05/25/18 Status: Discontinued ANES fentaNYL 50 microgram, Route: IVP, Q5Min, Dosing Weight 75.455, kg, PRN Pain Score 7-10, Priority: Routine, Start date: 05/25/18 10:18:00 CDT, Duration: 2 doses or times , Stop date: Limited # of times Start Date: 05/25/18 Stop Date: 05/25/18 Status: Discontinued ANES flumazenil 0.2 mg, Route: IVP, PRN, Dosing Weight 75.455, kg, PRN Benzodiazepine Reversal, Initial dose, Start date: 05/25/18 10:18:00 CDT, Duration: 30 day, Stop date: 10:17:00 CDT Start Date: 05/25/18 Stop Date: 05/25/18 Status: Discontinued ANES HYDROmorphone 0.5 mg, Route: IVP, Q5Min, Dosing Weight 75.455, kg, PRN Pain Score 7-10, Start date: 05/25/18 10:18:00 CDT, Duration: 4 doses or times, Stop date: Limited # of times Start Date: 05/25/18 Stop Date: 05/25/18 Status: Discontinued ANES meperidine 12.5 mg, Route: IVP, Q30Min, Dosing Weight 75.455, kg, PRN Other -See Comment, F or shivering, Start date: 05/25/18 10:18:00 CDT, Duration: 2 doses or times, Sto p date: Limited # of times Start Date: 05/25/18 Stop Date: 05/25/18 Status: Discontinued ANES naloxone 0.1 mg, Route: SUB-Q, Q6H, Dosing Weight 75.455, kg, PRN Itching, Start date: 10:18:00 CDT, Duration: 30 day, Stop date: 06/24/18 10:17:00 CDT Start Date: 05/25/18 Stop Date: 05/25/18 Status: Discontinued ANES naloxone 0.4 mg, Route: IVP, Q2MIN, Dosing Weight 75.455, kg, PRN Narcotic Reversal, Star t date: 05/25/18 10:18:00 CDT, Duration: 8 doses or times, Stop date: Limited # of times Start Date: 05/25/18 Stop Date: 05/25/18 Status: Discontinued ANES ondansetron 4 mg, Route: IVP, ONCE, Dosing Weight 75.455, kg, PRN Nausea & Vomiting, Start date: 05/25/18 10:18:00 CDT Start Date: 05/25/18 Stop Date: 05/25/18 Status: Discontinued ANES oxyCODONE 5 mg, Route: NG, Drug form: LIQ, Q4H, Dosing Weight 75.455, kg, PRN Pain Score 4 -6, Start date: 05/25/18 10:18:00 CDT, Duration: 30 day, Stop date: 06/24/18 10: 17:00 CDT Start Date: 05/25/18 Stop Date: 05/25/18 Status: Discontinued ANES oxyCODONE 5 mg, Route: PO, Drug form: TAB, Q4H, Dosing Weight 75.455, kg, PRN Pain Score 4 -6, Start date: 05/25/18 10:18:00 CDT, Duration: 30 day, Stop date: 06/24/18 10: 17:00 CDT Start Date: 05/25/18 Stop Date: 05/25/18 Status: Discontinued ANES oxyCODONE 10 mg, Route: NG, Drug form: LIQ, Q4H, Dosing Weight 75.455, kg, PRN Pain Score 7-10, Start date: 05/25/18 10:18:00 CDT, Duration: 30 day, Stop date: 06/24/18 1 0:17:00 CDT Start Date: 05/25/18 Stop Date: 05/25/18 Status: Discontinued ANES oxyCODONE 10 mg, Route: PO, Drug form: TAB, Q4H, Dosing Weight 75.455, kg, PRN Pain Score 7-10, Start date: 05/25/18 10:18:00 CDT, Duration: 30 day, Stop date: 06/24/18 1 0:17:00 CDT Start Date: 05/25/18 Stop Date: 05/25/18 Status: Discontinued ANES promethazine 6.25 mg, Route: IVPB, ONCE, Dosing Weight 75.455, kg, PRN Nausea & Vomiting, Start date: 05/25/18 10:18:00 CDT Start Date: 05/25/18 Stop Date: 05/25/18 Status: Discontinued ANES scopolamine 1.5 mg transdermal film 1 patch, Route: TOP, Drug Form: ERFILM, Dosing Weight 75.455, kg, ONCE, Apply be hind ear. Avoid use in elderly., Start date: 05/25/18 10:18:00 CDT, Stop date: 05/25/18 10:18:00 CDT Start Date: 05/25/18 Stop Date: 05/25/18 Status: Discontinued ceFAZolin (ANES) Route: IV, Drug form: INJ, ONCE, Stop date: 05/25/18 10:03:00 CDT Start Date: 05/25/18 Stop Date: 05/25/18 Status: Completed Colace 100 mg oral capsule 100 mg=1 cap, PO, BID, PRN Constipation, # 20 cap, 0 Refill(s) Start Date: 05/25/18 Status: Ordered dexamethasone (ANES) Route: IV, Drug form: INJ, ONCE, Stop date: 05/25/18 10:03:00 CDT Start Date: 05/25/18 Stop Date: 05/25/18 Status: Completed ePHEDrine (ANES) Route: IV, Drug form: INJ, ONCE, Stop date: 05/25/18 10:01:00 CDT Start Date: 05/25/18 Stop Date: 05/25/18 Status: Completed famotidine (ANES) Route: IV, Drug form: INJ, ONCE, Stop date: 05/25/18 10:03:00 CDT Start Date: 05/25/18 Stop Date: 05/25/18 Status: Completed fentaNYL (ANES) Route: IV, Drug form: INJ, ONCE, Stop date: 05/25/18 10:03:00 CDT Start Date: 05/25/18 Stop Date: 05/25/18 Status: Completed glycopyrrolate (ANES) Route: IV, Drug form: INJ, ONCE, Stop date: 05/25/18 10:03:00 CDT Start Date: 05/25/18 Stop Date: 05/25/18 Status: Completed ketOROLAC (ANES) IV, ONCE Start Date: 05/25/18 Stop Date: 05/25/18 Status: Completed Lactated Ringers Injection IV (ANES) 1000 mL Route: IV, Total Volume: 1,000, Start date: 05/25/18 8:57:00 CDT, Stop date: 9:57:00 CDT Start Date: 05/25/18 Stop Date: 05/25/18 Status: Completed Lactated Ringers IV 1,000 mL 1,000 mL, Rate: 40 ml/hr, Infuse over: 25 hr, Route: IV, Dosing Weight 75.455 kg , Total Volume: 1,000, Start date: 05/25/18 8:30:00 CDT, Duration: 1 day, Stop d ate: 05/26/18 8:29:00 CDT, 1.84, m2 Start Date: 05/25/18 Stop Date: 05/25/18 Status: Discontinued lidocaine (ANES) Route: IV, Drug form: INJ, ONCE, Stop date: 05/25/18 10:03:00 CDT Start Date: 05/25/18 Stop Date: 05/25/18 Status: Completed metoclopramide (ANES) Route: IV, Drug form: INJ, ONCE, Stop date: 05/25/18 10:03:00 CDT Start Date: 05/25/18 Stop Date: 05/25/18 Status: Completed midazolam (ANES) Route: IV, Drug form: SOLN, ONCE, Stop date: 05/25/18 10:03:00 CDT Start Date: 05/25/18 Stop Date: 05/25/18 Status: Completed neostigmine (ANES) Route: IV, Drug form: INJ, ONCE, Stop date: 05/25/18 10:03:00 CDT Start Date: 05/25/18 Stop Date: 05/25/18 Status: Completed oxyCODONE 5 mg oral tablet 10 mg, Route: PO, Drug form: TAB, ONCE, Dosing Weight 75.455, kg, PRN Pain Score 7-10, Start date: 05/25/18 10:45:00 CDT Start Date: 05/25/18 Stop Date: 05/25/18 Status: Completed propofol (ANES) Route: IV, Drug form: INJ, ONCE, Stop date: 05/25/18 10:03:00 CDT Start Date: 05/25/18 Stop Date: 05/25/18 Status: Completed rocuronium (ANES) Route: IV, Drug form: INJ, ONCE, Stop date: 05/25/18 10:03:00 CDT Start Date: 05/25/18 Stop Date: 05/25/18 Status: Completed Tylenol with Codeine #3 oral tablet 1 tab, PO, Q6H, PRN pain, X 7 day, # 28 tab, 0 Refill(s) Start Date: 05/25/18 Stop Date: 06/01/18 Status: Ordered Results ELECTROLYTES Most recent to 1 oldest [Reference Range]: Sodium Lvl [135-145 141 mEq/L mEq/L] (05/22/18 9:45 AM) Potassium Lvl 4.4 mEq/L [3.5-5.1 mEq/L] (05/22/18 9:45 AM) Chloride Lvl [95-109 106 mEq/L mEq/L] (05/22/18 9:45 AM) CO2 [24-32 mEq/L] 28 mEq/L (05/22/18 9:45 AM) AGAP [10.0-20.0 11.4 mEq/L mEq/L] (05/22/18 9:45 AM) CHEM PANEL Most recent to 1 oldest [Reference Range]: Creatinine Lvl 0.50 mg/dL [0.50-1.40 mg/dL] (05/22/18 9:45 AM) eGFR 123 mL/min/1.73m2 1 *NA* (05/22/18 9:45 AM) BUN [7-22 mg/dL] 11 mg/dL (05/22/18 9:45 AM) B/C Ratio [6-25] 22 (05/22/18 9:45 AM) Glucose Lvl [70-99 94 mg/dL mg/dL] (05/22/18 9:45 AM) Total Protein 8.4 g/dL [6.4-8.4 g/dL] (05/22/18 9:45 AM) Albumin Lvl [3.5-5.0 3.9 g/dL g/dL] (05/22/18 9:45 AM) Globulin [2.7-4.2 4.5 g/dL g/dL] *HI* (05/22/18 9:45 AM) A/G Ratio [0.7-1.6] 0.9 (05/22/18 9:45 AM) Calcium Lvl 9.5 mg/dL [8.5-10.5 mg/dL] (05/22/18 9:45 AM) ALT [0-65 unit/L] 15 unit/L (05/22/18 9:45 AM) AST [0-37 unit/L] 13 unit/L (05/22/18 9:45 AM) Alk Phos [39-136 101 unit/L unit/L] (05/22/18 9:45 AM) Bili Total [0.2-1.3 0.3 mg/dL mg/dL] (05/22/18 9:45 AM) 1Result Comment: The eGFR is calculated using the [...] from the National Kid[employer] Education Program ( NKDEP) which additionally recommends that when the eGFR is used in patients with extremes of body mass index for purposes of drug dosing, the eGFR should be mul tiplied by the estimated BMI. HEMATOLOGY Most recent to 1 oldest [Reference Range]: WBC [3.7-10.4 K/CMM] 11.7 K/CMM *HI* (05/22/18 9:45 AM) RBC [4.20-5.40 4.71 M/CMM M/CMM] (05/22/18 9:45 AM) Hgb [12.0-16.0 g/dL] 13.9 g/dL (05/22/18 9:45 AM) Hct [36.0-48.0 %] 41.3 % (05/22/18 9:45 AM) MCV [80.0-98.0 fL] 87.7 fL (05/22/18 9:45 AM) MCH [27.0-31.0 pg] 29.4 pg (05/22/18 9:45 AM) MCHC [32.0-36.0 33.6 g/dL g/dL] (05/22/18 9:45 AM) RDW [11.5-14.5 %] 12.9 % (05/22/18 9:45 AM) MPV [7.4-10.4 fL] 7.4 fL (05/22/18 9:45 AM) Platelet [133-450 366 K/CMM K/CMM] (05/22/18 9:45 AM) Segs [45.0-75.0 %] 68.3 % (05/22/18 9:45 AM) Lymphocytes 23.7 % [20.0-40.0 %] (05/22/18 9:45 AM) Monocytes [2.0-12.0 5.8 % %] (05/22/18 9:45 AM) Eosinophils [0.0-4.0 1.7 % %] (05/22/18 9:45 AM) Basophils [0.0-1.0 0.5 % %] (05/22/18 9:45 AM) Segs-Bands # 8.0 K/CMM [1.5-8.1 K/CMM] (05/22/18 9:45 AM) Lymphocytes # 2.8 K/CMM [1.0-5.5 K/CMM] (05/22/18 9:45 AM) Monocytes # [0.0-0.8 0.7 K/CMM K/CMM] (05/22/18 9:45 AM) Eosinophils # 0.2 K/CMM [0.0-0.5 K/CMM] (05/22/18 9:45 AM) Basophils # [0.0-0.2 0.1 K/CMM K/CMM] (05/22/18 9:45 AM) Immunizations No data available for this section [...] Smoking Cessation Counseling No entered on: 05/22/18 Assessment and Plan Extracted from: Title: Clinical Document Author: Thomas Andrade MD Date: [...] was closed using 0 Vicryl in a [id number] manner, and the skin was closed using 4-0 Monocryl in running subcuticular manner. The skin in the 5-mm ports were closed using 4-0 Monocryl in simple U-stitch manner. The patient was extubated in the operating room and transferred to recovery in stable condition. All instrument and laparotomy counts were correct.
--- OUTSIDE RECORDS SUMMARY | 2019-08-18 14:34 | XMS REPORT | Summary of Care ---
Author Author [facility] Organization [facility] Address Unknown Phone Unavailable Encounter HQ Rabiantr_malgorzata(FIN) [id number] Date(s): 06/14/19 - 06/15/19 [facility] [address] [place] [address]- Vital Signs No data available for this [...]
[2019-08-18] MEDS ORDERED: SODIUM CHLORIDE 0.9% 1000ML 1,000 ML IV STA (14:42)
[2019-08-18] MEDS ORDERED: MORPHINE SULFATE INJ 4 MG/ML INJ 1ML IV ONE (14:42)
[2019-08-18] MEDS ORDERED: CEFTRIAXONE SOD 1 GM/NS 50 ML 50 ML IV ONE (14:42)
[2019-08-18] MEDS ORDERED: ONDANSETRON HCL INJ 2MG/ML 2ML 2 MG/ML VIAL IV ONE (14:42)
[2019-08-18] MEDS ORDERED: METRONIDAZOLE 500MG/NS 100ML 100 ML IV ONE (15:00)
[2019-08-18] MEDS ORDERED: CIPROFLOXACIN 400 MG/D5W 200ML 200 ML IV ONE (15:00)
[2019-08-18 15:07] LABS: BASOPHILS % 0.2 % (0.0-1.0); BILIRUBIN,URINE NEGATIVE (NEGATIVE); CLARITY,URINE CLOUDY (CLEAR); COLOR,URINE YELLOW (YELLOW); HEMOGLOBIN 12.9 g/dL (12.0-16.0); KETONES,URINE NEGATIVE (NEGATIVE); LEUKOCYTE ESTERASE ,URINE TRACE (NEGATIVE); LYMPHOCYTES # (AUTO) 0.7 (1.0-3.2); MEAN CORPUSCULAR HEMOGLOBIN 29.5 pg (28-32); MEAN CORPUSCULAR HGB CONC 33.9 g/dL (31-35); MEAN CORPUSCULAR VOLUME 86.8 fL (81-99); MONOCYTES # (AUTO) 0.5 (0.2-0.8); MONOCYTES % 3.4 % (4.4-11.3); NEUTROPHILS % 90.9 % (38.7-80.0); NITRITE,URINE NEGATIVE (NEGATIVE); PLATELET COUNT 319 x10e3/uL (140-360); PROTEIN,URINE DIPSTICK TRACE (NEGATIVE); RED BLOOD COUNT 4.38 x10e6/uL (3.6-5.1); RED CELL DISTRIBUTION WIDTH 12.2 % (11.7-14.4); URINE UROBILINOGEN 0.2 mg/dL (0.2 - 1)
[2019-08-18 15:15] LABS: INR 0.9; PROTHROMBIN TIME 12.6 seconds (11.9-14.5)
[2019-08-18 15:16] LABS: PARTIAL THROMBOPLASTIN TIME 30.2 seconds (23.8-35.5)
[2019-08-18 15:21] LABS: AMORPHOUS SEDIMENT,URINE MANY (FEW); BACTERIA,URINE MODERATE /HPF; WBC,URINE (MAN) 0-5 /HPF (0-5)
[2019-08-18 15:27] LABS: ALANINE AMINOTRANSFERASE 11 IU/L (0-55); ALBUMIN 3.6 g/dL (3.5-5.0); ALKALINE PHOSPHATASE 90 IU/L (40-150); ANION GAP 14.5 mmol/L (8-16); BLOOD UREA NITROGEN 7 mg/dL (7-26); BUN/CREATININE RATIO 11 (6-25); CARBON DIOXIDE 23 mmol/L (22-29); CHLORIDE 103 mmol/L (98-107); CREATINE KINASE 44 IU/L (29-168); CREATININE, SERUM 0.65 mg/dL (0.57-1.11); EST GLOMERULAR FILTRATION RATE > 60 ML/MIN (60-); GLUCOSE 111 mg/dL (74-118); LIPASE 11 U/L (8-78); POTASSIUM 3.5 mmol/L (3.5-5.1); SODIUM 137 mmol/L (136-145)
--- NOTE | 2019-08-18 17:04 | Diagnostic Imaging Report ---
EXAM: CHEST SINGLE (PORTABLE) DATE: 08/18/2019 2:42 PM INDICATION: Fever, abdominal pain COMPARISON: None FINDINGS: The trachea is midline. The lungs are symmetrically expanded without evidence for large focal consolidation, pneumothorax, or significant pleural effusion. The cardiomediastinal silhouette and pulmonary vasculature are within normal limits. No acute osseous abnormality is identified. The surrounding soft tissues are unremarkable. IMPRESSION: No acute cardiopulmonary process identified. Signed by: Dr. Jethro Robbins MD on 08/18/2019 5:00 PM
--- NOTE | 2019-08-18 17:41 | Diagnostic Imaging Report ---
CT of the abdomen and pelvis, with contrast. History: Abdominal pain. Comparison: None available. Technique: Multidetector CT scanning of the abdomen and pelvis was performed from the level of the lung bases to the inferior pubic rami after the administration of intravenous contrast. Coronal and sagittal multiplanar reformations were obtained. RADIATION DOSE: Total DLP: 607.70 mGy*cm Dose modulation, iterative reconstruction, and/or weight based adjustment of the mA/kV was utilized to reduce the radiation dose to as low as reasonably achievable. FINDINGS: The lung bases are grossly clear. The imaged portion of the heart demonstrates no significant abnormalities. The liver is normal in size and attenuation without evidence for focal abnormality. The gallbladder is surgically absent. There is no intrahepatic biliary ductal dilatation. There is mild prominence of the extrahepatic common bile duct likely relating to post cholecystectomy status. There is a small hiatal hernia present. The stomach is otherwise unremarkable. The spleen, pancreas, and bilateral adrenal glands are unremarkable. The kidneys are normal in size and location and concentrate contrast material properly. There is no evidence of hydronephrosis. The ureters are normal in course and caliber. The urinary bladder demonstrates no significant abnormalities. The uterus is surgically absent. No abnormal adnexal masses are identified. There is a trace amount of nonspecific free pelvic fluid present The abdominal aorta is normal course and caliber. The IVC is unremarkable. Please note evaluation the bowel is limited without the use of enteric contrast material. There is apparent mild wall thickening of loops of small bowel within the mid and lower abdomen. Findings may reflect normal peristalsis, underdistention, or can be seen in the setting of a enteritis. No evidence for bowel obstruction. The colon appears unremarkable without evidence for obstruction or inflammation. The appendix is visualized and appears unremarkable. There is no intraperitoneal free air. No abnormally enlarged lymph nodes are identified within the abdomen or pelvis. The osseous structures demonstrate no evidence for acute fracture or destructive process. The extra peritoneal soft tissues are unremarkable. IMPRESSION: Mild wall thickening noted of loops of small bowel within the lower abdomen which is nonspecific but can be seen in the setting of an enteritis. No evidence for bowel obstruction or perforation. No other acute abdominopelvic process identified. Status post cholecystectomy and hysterectomy. Signed by: Dr. Jethro Robbins MD on 08/18/2019 5:37 PM
[2019-08-18 19:05] VITALS: BP 127/83
[2019-08-19] MEDS ORDERED: IOPAMIDOL 370 MG/ML 200 ML INFUS..BTL INJ ONE (02:09)
[2019-08-19] MEDS ORDERED: SODIUM CHLORIDE 0.9% 50ML 50 ML ONE (02:09)
== END 2019-08-18 19:07 | disposition home or self-care (01) ==
LOC: ER 14:28
DX: R10.11 Right upper quadrant pain (principal); R10.13 Epigastric pain; R11.2 Nausea with vomiting, unspecified; R19.7 Diarrhea, unspecified; E78.5 Hyperlipidemia, unspecified; F32.9 Major depressive disorder, single episode, unspecified
CPT/HCPCS: 36415; 71045; 74177; 80053; 81001; 82550; 82553; 83690; 84484; 85025; 85610; 85730; 87045; 87086; 93005; 99284; J0696; J0744; J2270; J2405; J7030

== ENCOUNTER 2020-12-14 19:43 | Emergency (ER) | payer BC ==
[~2020-12-14] VITALS: Ht 157.5 cm; Wt 79.4 kg
[2020-12-14] MEDS ORDERED: ASPIRIN 81 MG CHEW TAB PO ONE (20:00)
[2020-12-14 20:19] LABS: BASOPHILS % 0.4 % (0.0-1.0); EOSINOPHILS # (AUTO) 0.1 (0.0-0.4); EOSINOPHILS % 1.7 % (0.0-6.0); HEMATOCRIT 37.8 % (34.2-44.1); HEMOGLOBIN 12.5 g/dL (12.0-16.0); LYMPHOCYTES # (AUTO) 2.3 (1.0-3.2); LYMPHOCYTES % 28.2 % (18.0-39.1); MEAN CORPUSCULAR HEMOGLOBIN 29.1 pg (28-32); MEAN CORPUSCULAR HGB CONC 33.1 g/dL (31-35); MEAN CORPUSCULAR VOLUME 87.9 fL (81-99); MONOCYTES # (AUTO) 0.5 (0.2-0.8); MONOCYTES % 6.3 % (4.4-11.3); NEUTROPHILS # (AUTO) 5.1 (2.1-6.9); PLATELET COUNT 292 x10e3/uL (140-360); RED CELL DISTRIBUTION WIDTH 12.3 % (11.7-14.4)
[2020-12-14 20:37] LABS: INR 0.87; PROTHROMBIN TIME 12.3 seconds (11.9-14.5)
[2020-12-14 20:45] LABS: ALANINE AMINOTRANSFERASE 12 IU/L (0-55); ALBUMIN 3.7 g/dL (3.5-5.0); ALKALINE PHOSPHATASE 85 IU/L (40-150); ANION GAP 12.9 mmol/L (8-16); BLOOD UREA NITROGEN 13 mg/dL (7-26); BUN/CREATININE RATIO 22 (6-25); CALCIUM 8.9 mg/dL (8.4-10.2); CARBON DIOXIDE 26 mmol/L (22-29); CHLORIDE 106 mmol/L (98-107); CREATINE KINASE 33 IU/L (29-168); EST GLOMERULAR FILTRATION RATE > 60 ML/MIN (60-); GLUCOSE 106 mg/dL (74-118); POTASSIUM 3.9 mmol/L (3.5-5.1); SODIUM 141 mmol/L (136-145)
[2020-12-14] MEDS ORDERED: SODIUM CHLORIDE 0.9% 50ML 50 ML ONE (21:03)
[2020-12-14] MEDS ORDERED: IOPAMIDOL 370 MG/ML 200 ML INFUS..BTL INJ ONE (21:03)
[2020-12-15 00:17] VITALS: BP 162/84
== END 2020-12-14 23:30 | disposition home or self-care (01) ==
LOC: ER 19:47
DX: U07.1 COVID-19 (principal); R05 Cough; R06.02 Shortness of breath; M79.652 Pain in left thigh; M79.651 Pain in right thigh; E78.5 Hyperlipidemia, unspecified; F32.9 Major depressive disorder, single episode, unspecified
CPT/HCPCS: 36415; 71260; 80053; 82550; 82553; 83880; 84484; 84702; 85025; 85610; 93005; 93970; 99284; Q9967; U0002

== ENCOUNTER 2021-08-18 23:37 | Emergency (ER) | payer BC ==
[~2021-08-18] VITALS: Ht 157.5 cm; Wt 79.4 kg
[2021-08-19] MEDS ORDERED: KETOROLAC TROMETHAMINE 60 MG/2 ML VIAL IM ONE (00:30)
[2021-08-19] MEDS ORDERED: KETOROLAC TROMETHAMINE 60 MG/2 ML VIAL ONE (00:41)
== END 2021-08-19 02:29 | disposition home or self-care (01) ==
LOC: ER 08-19 00:23
DX: S39.012A Strain of muscle, fascia and tendon of lower back, initial encounter (principal); W18.09XA Striking against other object with subsequent fall, initial encounter; Y93.84 Activity, sleeping; Y92.003 Bedroom of unspecified non-institutional (private) residence as the place of occurrence of the external cause; E78.5 Hyperlipidemia, unspecified; F32.9 Major depressive disorder, single episode, unspecified
CPT/HCPCS: 72100; 99283; J1885

== ENCOUNTER 2022-03-18 04:24 | Inpatient (IN) | payer BC ==
[~2022-03-18] VITALS: Ht 157.5 cm; Wt 79.4 kg
[2022-03-18] VITALS (10 sets, daily range): BP systolic 99–134; BP diastolic 60–82
[2022-03-18] MEDS ORDERED: ONDANSETRON HCL INJ 2MG/ML 2ML 2 MG/ML VIAL IV STA (04:28)
[2022-03-18] MEDS ORDERED: FAMOTIDINE 20 MG/2 ML VIAL IV STA (04:28)
[2022-03-18] MEDS ORDERED: Morphine 4mg Syringe 4 MG/ML INJ IV STA (04:34)
[2022-03-18] MEDS ORDERED: ONDANSETRON HCL INJ 2MG/ML 2ML 2 MG/ML VIAL ONE (04:43)
[2022-03-18] MEDS ORDERED: FAMOTIDINE 20 MG/2 ML VIAL IV ONE (04:43)
[2022-03-18 04:49] LABS: BASOPHILS % 0.2 % (0.0-1.0); EOSINOPHILS % 0.1 % (0.0-6.0); HEMATOCRIT 45.9 % (34.2-44.1); HEMOGLOBIN 14.8 g/dL (12.0-16.0); LYMPHOCYTES # (AUTO) 1.3 (1.0-3.2); LYMPHOCYTES % 9.3 % (18.0-39.1); MEAN CORPUSCULAR HEMOGLOBIN 29.2 pg (28-32); MEAN CORPUSCULAR HGB CONC 32.2 g/dL (31-35); MEAN CORPUSCULAR VOLUME 90.5 fL (81-99); MONOCYTES # (AUTO) 0.5 (0.2-0.8); MONOCYTES % 3.5 % (4.4-11.3); NEUTROPHILS # (AUTO) 11.8 (2.1-6.9); NEUTROPHILS % 86.4 % (38.7-80.0); PLATELET COUNT 379 x10e3/uL (140-360); RED BLOOD COUNT 5.07 x10e6/uL (3.6-5.1)
[2022-03-18] MEDS ORDERED: SODIUM CHLORIDE 0.9% 1000ML 1,000 ML IV STA (04:55)
[2022-03-18 05:04] LABS: CREATINE KINASE 30 IU/L (29-168)
[2022-03-18 05:06] LABS: ALBUMIN 3.8 g/dL (3.5-5.0); ALBUMIN/GLOBULIN RATIO 0.8 (0.8-2.0); CREATININE, SERUM 0.8 mg/dL (0.57-1.11)
[2022-03-18] MEDS ORDERED: ACETAMINOPHEN 1000 MG/100 ML IV STA (05:20)
[2022-03-18] MEDS ORDERED: IOPAMIDOL 370 MG/ML 100 ML INFUS..BTL INJ ONE (05:35)
[2022-03-18 06:38] LABS: CLARITY,URINE SL CLOUDY (CLEAR); COLOR,URINE YELLOW (YELLOW); KETONES,URINE NEGATIVE (NEGATIVE); LEUKOCYTE ESTERASE ,URINE NEGATIVE (NEGATIVE); NITRITE,URINE NEGATIVE (NEGATIVE); PROTEIN,URINE DIPSTICK NEGATIVE (NEGATIVE); URINE UROBILINOGEN 0.2 mg/dL (0.2 - 1)
[2022-03-18 06:40] LABS: BACTERIA,URINE FEW /HPF; EPITHELIAL CELLS,URINE MANY /LPF; RBC,URINE 0-5 /HPF (0-5); WBC,URINE (MAN) 0-5 /HPF (0-5)
[2022-03-18] MEDS ORDERED: ONDANSETRON HCL INJ 2MG/ML 2ML 2 MG/ML VIAL IV PRN ×2 (07:15→12:15)
[2022-03-18] MEDS ORDERED: METRONIDAZOLE 500MG/NS 100ML IV SCH (07:15)
[2022-03-18] MEDS ORDERED: Morphine 4mg Syringe 4 MG/ML INJ IV PRN (07:15)
[2022-03-18] MEDS ORDERED: POTASSIUM CHLORIDE 20 MEQ TAB CR PO STA (07:16)
[2022-03-18] MEDS: KCL 20MEQ/.9 SOD CHL 1,000 ML IV SCH ×2 (07:30→17:54)
[2022-03-18] MEDS ORDERED: METRONIDAZOLE 500MG/NS 100ML 100 ML IV SCH (08:00)
[2022-03-18] MEDS ORDERED: IRBESARTAN150 MG PO (08:24)
[2022-03-18] MEDS ORDERED: ESTRACE42.5 GM VG (08:24)
[2022-03-18] MEDS ORDERED: ALBUTEROL/IPRATROPIUM 3 ML NEB NEB PRN (12:15)
[2022-03-18] MEDS ORDERED: DEXTROSE 50% SYRINGE 50 ML IV PRN (12:15)
[2022-03-18] MEDS ORDERED: LIDOCAINE 4% PATCH TP PRN (12:15)
[2022-03-18] MEDS ORDERED: DOCUSATE SODIUM 100 MG CAP PO PRN (12:15)
[2022-03-18] MEDS ORDERED: DIPHENHYDRAMINE HCL 25 MG CAP PO PRN (12:15)
[2022-03-18] MEDS ORDERED: HYDRALAZINE HCL 20 MG/ML VIAL IV PRN (12:15)
[2022-03-18] MEDS ORDERED: SIMETHICONE 80 MG CHEW PO PRN (12:15)
[2022-03-18] MEDS ORDERED: MELATONIN 5 MG TABLET PO PRN (12:15)
[2022-03-18] MEDS ORDERED: BENZONATATE 100 MG CAP PO PRN (12:15)
[2022-03-18] MEDS ORDERED: ACETAMINOPHEN 325 MG TAB PO PRN (12:15)
[2022-03-18] MEDS ORDERED: POTASSIUM CHLORIDE 20 MEQ TAB CR PO ONE (13:00)
[2022-03-18] MEDS ORDERED: SERTRALINE HCL 50 MG TAB PO PRN (13:15)
[2022-03-18] MEDS ORDERED: SERTRALINE HCL 50 MG TAB PO SCH (13:15)
[2022-03-18] MEDS ORDERED: SODIUM CHLORIDE 0.9% 1000ML 1,000 ML IV ONE (13:30)
[2022-03-18] MEDS: ENOXAPARIN SOD INJ 40 MG/0.4 ML SYR SC SCH (17:46)
[2022-03-18] MEDS: DICYCLOMINE HCL 10 MG CAP PO SCH (23:26)
[2022-03-19] VITALS (7 sets, daily range): BP systolic 117–122; BP diastolic 62–80
[2022-03-19 04:58] LABS: BASOPHILS % 0.5 % (0.0-1.0); EOSINOPHILS # (AUTO) 0.1 (0.0-0.4); HEMATOCRIT 36.8 % (34.2-44.1); HEMOGLOBIN 11.9 g/dL (12.0-16.0); LYMPHOCYTES # (AUTO) 1.2 (1.0-3.2); LYMPHOCYTES % 19.8 % (18.0-39.1); MEAN CORPUSCULAR HEMOGLOBIN 29.2 pg (28-32); MEAN CORPUSCULAR HGB CONC 32.3 g/dL (31-35); MEAN CORPUSCULAR VOLUME 90.4 fL (81-99); MONOCYTES # (AUTO) 0.6 (0.2-0.8); MONOCYTES % 9.8 % (4.4-11.3); NEUTROPHILS % 68.6 % (38.7-80.0); PLATELET COUNT 290 x10e3/uL (140-360); RED BLOOD COUNT 4.07 x10e6/uL (3.6-5.1); RED CELL DISTRIBUTION WIDTH 13.1 % (11.7-14.4)
[2022-03-19 05:27] LABS: ALBUMIN 2.9 g/dL (3.5-5.0); ALBUMIN/GLOBULIN RATIO 0.8 (0.8-2.0); ANION GAP 11.3 mmol/L (8-16); CALCIUM 8.1 mg/dL (8.4-10.2); CREATININE, SERUM 0.56 mg/dL (0.57-1.11); POTASSIUM 3.3 mmol/L (3.5-5.1)
[2022-03-19] MEDS: METRONIDAZOLE 500MG/NS 100ML 100 ML IV SCH ×3 (06:13→21:01)
[2022-03-19] MEDS: DICYCLOMINE HCL 10 MG CAP PO SCH ×3 (08:50→20:11)
[2022-03-19] MEDS: ENOXAPARIN SOD INJ 40 MG/0.4 ML SYR SC SCH (17:04)
[2022-03-19 22:43] LABS: % IRON SATURATION 9 % (15-50); IRON 24 ug/dL (50-170); TOTAL IRON BINDING CAPACITY 266 ug/dL (261-478); TRANSFERRIN 190 mg/dL (180-382)
[2022-03-20] VITALS (7 sets, daily range): BP systolic 116–144; BP diastolic 79–90
[2022-03-20] MEDS: METRONIDAZOLE 500MG/NS 100ML 100 ML IV SCH ×3 (05:38→22:10)
[2022-03-20 05:46] LABS: BASOPHILS % 0.2 % (0.0-1.0); EOSINOPHILS # (AUTO) 0.1 (0.0-0.4); EOSINOPHILS % 0.9 % (0.0-6.0); HEMATOCRIT 33.7 % (34.2-44.1); HEMOGLOBIN 11.2 g/dL (12.0-16.0); LYMPHOCYTES # (AUTO) 1.7 (1.0-3.2); MEAN CORPUSCULAR HGB CONC 33.2 g/dL (31-35); MEAN CORPUSCULAR VOLUME 87.3 fL (81-99); MONOCYTES # (AUTO) 0.5 (0.2-0.8); MONOCYTES % 9.4 % (4.4-11.3); NEUTROPHILS # (AUTO) 3.4 (2.1-6.9); PLATELET COUNT 316 x10e3/uL (140-360); RED BLOOD COUNT 3.86 x10e6/uL (3.6-5.1); RED CELL DISTRIBUTION WIDTH 12.7 % (11.7-14.4)
[2022-03-20 06:19] LABS: ANION GAP 10.8 mmol/L (8-16); BLOOD UREA NITROGEN < 5 mg/dL (7-26); CALCIUM 8.1 mg/dL (8.4-10.2); CARBON DIOXIDE 24 mmol/L (22-29); CHLORIDE 108 mmol/L (98-107); CREATININE, SERUM 0.55 mg/dL (0.57-1.11); EST GLOMERULAR FILTRATION RATE 121 ML/MIN (60-); GLUCOSE 82 mg/dL (74-118); SODIUM 140 mmol/L (136-145)
[2022-03-20 06:27] LABS: BUN/CREATININE RATIO 9 (6-25); POTASSIUM 2.8 mmol/L (3.5-5.1)
[2022-03-20] MEDS: POTASSIUM CHLORIDE 20 MEQ TAB CR PO PRN ×2 (06:52→12:49)
[2022-03-20] MEDS: DICYCLOMINE HCL 10 MG CAP PO SCH ×3 (09:35→20:52)
[2022-03-20] MEDS ORDERED: SODIUM CHLORIDE 0.9% 1000ML 1,000 ML ONE (12:48)
[2022-03-20] MEDS: SODIUM CHLORIDE 0.9% 1000ML 1,000 ML IV SCH (12:49)
[2022-03-20] MEDS: ENOXAPARIN SOD INJ 40 MG/0.4 ML SYR SC SCH (17:09)
[2022-03-20] MEDS ORDERED: BISACODYL 5 MG TAB EC PO ONE ×2 (19:30→20:30)
[2022-03-20] MEDS ORDERED: CITRATE OF MAGNESIA 300ML BOTTLE PO ONE (23:00)
[2022-03-21] VITALS (7 sets, daily range): BP systolic 131–145; BP diastolic 86–99
[2022-03-21] MEDS: SODIUM CHLORIDE 0.9% 1000ML 1,000 ML IV SCH ×3 (00:19→20:48)
[2022-03-21] MEDS ORDERED: CYANOCOBALAMIN INJ 1,000 MCG/ML VIAL IM ONE (01:30)
[2022-03-21] MEDS ORDERED: POTASSIUM CHLORIDE 20 MEQ TAB CR PO STA ×2 (01:33→01:37)
[2022-03-21 05:01] LABS: BASOPHILS % 0.1 % (0.0-1.0); EOSINOPHILS % 0.3 % (0.0-6.0); HEMATOCRIT 36.3 % (34.2-44.1); HEMOGLOBIN 12.2 g/dL (12.0-16.0); LYMPHOCYTES # (AUTO) 1.8 (1.0-3.2); LYMPHOCYTES % 24.1 % (18.0-39.1); MEAN CORPUSCULAR HEMOGLOBIN 29.1 pg (28-32); MEAN CORPUSCULAR HGB CONC 33.6 g/dL (31-35); MEAN CORPUSCULAR VOLUME 86.6 fL (81-99); MONOCYTES # (AUTO) 0.5 (0.2-0.8); MONOCYTES % 6.2 % (4.4-11.3); NEUTROPHILS # (AUTO) 5.1 (2.1-6.9); NEUTROPHILS % 68.8 % (38.7-80.0); PLATELET COUNT 342 x10e3/uL (140-360); RED BLOOD COUNT 4.19 x10e6/uL (3.6-5.1); RED CELL DISTRIBUTION WIDTH 12.6 % (11.7-14.4)
[2022-03-21] MEDS: METRONIDAZOLE 500MG/NS 100ML 100 ML IV SCH ×3 (05:28→20:48)
[2022-03-21 05:32] LABS: ANION GAP 15.3 mmol/L (8-16); BLOOD UREA NITROGEN < 5 mg/dL (7-26); CALCIUM 8.5 mg/dL (8.4-10.2); CARBON DIOXIDE 20 mmol/L (22-29); CHLORIDE 108 mmol/L (98-107); CREATININE, SERUM 0.56 mg/dL (0.57-1.11); EST GLOMERULAR FILTRATION RATE 119 ML/MIN (60-); GLUCOSE 100 mg/dL (74-118); POTASSIUM 3.3 mmol/L (3.5-5.1); SODIUM 140 mmol/L (136-145)
[2022-03-21 05:35] LABS: BUN/CREATININE RATIO 9 (6-25)
[2022-03-21] MEDS ORDERED: CITRATE OF MAGNESIA 300ML BOTTLE PO ONE (07:00)
[2022-03-21] MEDS: DICYCLOMINE HCL 10 MG CAP PO SCH (08:38)
[2022-03-21] MEDS ORDERED: IRON SUCROSE 100 MG in SODIUM CHLORIDE 0.9% 100 ML 100 ML IV SCH (09:00)
[2022-03-21] MEDS: CYANOCOBALAMIN INJ 1,000 MCG/ML VIAL IM SCH (09:00)
[2022-03-21] MEDS ORDERED: MIDAZOLAM HCL 2 MG/2 ML VIAL ONE (13:10)
[2022-03-21] MEDS ORDERED: FENTANYL CITRATE/PF 100MCG/2 ML INJ ONE (13:10)
[2022-03-21] MEDS ORDERED: LIDOCAINE HCL 2% LOCAL INJ 5 ML SDV VIAL INJ ONE (17:20)
[2022-03-21] MEDS ORDERED: HYOSCYAMINE SULFATE 0.5 MG/ML INJ ONE (17:20)
[2022-03-21] MEDS ORDERED: PROPOFOL IV EMULSION 10 MG/ML 20 ML VIAL ONE (17:20)
[2022-03-21] MEDS: DICYCLOMINE HCL 20 MG TAB PO SCH ×2 (19:25→20:48)
[2022-03-21] MEDS: ENOXAPARIN SOD INJ 40 MG/0.4 ML SYR SC SCH (19:25)
[2022-03-22] MEDS: SODIUM CHLORIDE 0.9% 1000ML 1,000 ML IV SCH (04:48)
[2022-03-22 04:56] VITALS: BP 149/90
[2022-03-22 05:47] LABS: BASOPHILS % 0.2 % (0.0-1.0); EOSINOPHILS % 0.4 % (0.0-6.0); HEMATOCRIT 38.9 % (34.2-44.1); HEMOGLOBIN 12.9 g/dL (12.0-16.0); LYMPHOCYTES # (AUTO) 2.7 (1.0-3.2); LYMPHOCYTES % 29.8 % (18.0-39.1); MEAN CORPUSCULAR HGB CONC 33.2 g/dL (31-35); MEAN CORPUSCULAR VOLUME 87.4 fL (81-99); MONOCYTES # (AUTO) 0.5 (0.2-0.8); MONOCYTES % 5.1 % (4.4-11.3); NEUTROPHILS # (AUTO) 5.7 (2.1-6.9); NEUTROPHILS % 64.1 % (38.7-80.0); PLATELET COUNT 361 x10e3/uL (140-360); RED BLOOD COUNT 4.45 x10e6/uL (3.6-5.1); RED CELL DISTRIBUTION WIDTH 12.8 % (11.7-14.4)
[2022-03-22] MEDS: METRONIDAZOLE 500MG/NS 100ML 100 ML IV SCH (06:19)
[2022-03-22 06:23] LABS: ANION GAP 13.1 mmol/L (8-16); BLOOD UREA NITROGEN < 5 mg/dL (7-26); CALCIUM 8.3 mg/dL (8.4-10.2); CARBON DIOXIDE 23 mmol/L (22-29); CHLORIDE 106 mmol/L (98-107); CREATININE, SERUM 0.54 mg/dL (0.57-1.11); EST GLOMERULAR FILTRATION RATE 124 ML/MIN (60-); GLUCOSE 81 mg/dL (74-118); POTASSIUM 3.1 mmol/L (3.5-5.1); SODIUM 139 mmol/L (136-145)
[2022-03-22 06:25] LABS: BUN/CREATININE RATIO 9 (6-25)
[2022-03-22] MEDS: POTASSIUM CHLORIDE 20 MEQ TAB CR PO PRN (06:32)
[2022-03-22 07:44] VITALS: BP 150/90
[2022-03-22] MEDS: CYANOCOBALAMIN INJ 1,000 MCG/ML VIAL IM SCH (08:31)
[2022-03-22] MEDS: DICYCLOMINE HCL 20 MG TAB PO SCH ×2 (08:31→12:58)
[2022-03-22 09:00] VITALS: BP 150/90
[2022-03-22 11:42] VITALS: BP 130/88
[2022-03-22] MEDS ORDERED: ONDANSETRON HCL 4 MG ORAL DISINTEGRATING TAB PO PRN (15:00)
[2022-03-22] MEDS ORDERED: METRONIDAZOLE 500 MG TAB PO SCH (15:15)
[2022-03-22] MEDS ORDERED: PANTOPRAZOLE SOD 40 MG TABEC PO SCH (16:30)
== END 2022-03-22 14:58 | disposition home or self-care (01) | DRG 392 ==
LOC: ER 04:30 → ERHOLD 07:09 → MED/SURG2 09:16 → OBSVTOIN 03-19 15:31
PROVIDERS: ADMIT Internal Medicine; ATTEND Internal Medicine
PROC: 0DBG8ZX Excision of Left Large Intestine, Via Natural or Artificial Opening Endoscopic, Diagnostic (ICD-10-PCS; 2022-03-21)
PROC: 0DBB8ZX Excision of Ileum, Via Natural or Artificial Opening Endoscopic, Diagnostic (ICD-10-PCS; 2022-03-21)
PROC: 0DB98ZX Excision of Duodenum, Via Natural or Artificial Opening Endoscopic, Diagnostic (ICD-10-PCS; 2022-03-21)
PROC: 0DB78ZX Excision of Stomach, Pylorus, Via Natural or Artificial Opening Endoscopic, Diagnostic (ICD-10-PCS; 2022-03-21)
PROC: 0DB68ZX Excision of Stomach, Via Natural or Artificial Opening Endoscopic, Diagnostic (ICD-10-PCS; 2022-03-21)
PROC: 0D758ZZ Dilation of Esophagus, Via Natural or Artificial Opening Endoscopic (ICD-10-PCS; 2022-03-21)
PROC: 0DBH8ZX Excision of Cecum, Via Natural or Artificial Opening Endoscopic, Diagnostic (ICD-10-PCS; principal; 2022-03-21 16:10)
PROC: 0DBP8ZX Excision of Rectum, Via Natural or Artificial Opening Endoscopic, Diagnostic (ICD-10-PCS; 2022-03-21 16:10)
DX: A08.4 Viral intestinal infection, unspecified (principal); K51.50 Left sided colitis without complications; E86.0 Dehydration; K21.00 Gastro-esophageal reflux disease with esophagitis, without bleeding; F32.A Depression, unspecified; K22.2 Esophageal obstruction; K29.70 Gastritis, unspecified, without bleeding; K63.5 Polyp of colon; K62.89 Other specified diseases of anus and rectum; R15.2 Fecal urgency; R13.10 Dysphagia, unspecified; E87.6 Hypokalemia
CPT/HCPCS: 36415; 43239; 45380; 74177; 80048; 80053; 81001; 81025; 82550; 82553; 82607; 82746; 83540; 83605; 83630; 83690; 83735; 83993; 84466; 84484; 85025; 85045; 86141; 87040; 87045; 87177; 87328; 87493; 88305; 88312; 93005; 94799; 99284; G0378; J1650; J1756; J1980; J2001; J2250; J2270; J2405; J2543; J3010; J3420; J7030; Q9967; U0002

== ENCOUNTER 2023-01-05 19:35 | Emergency (ER) | payer BC ==
[~2023-01-05] VITALS: Ht 157.5 cm; Wt 79.4 kg
[~2023-01-05 19:35] MED LIST changes: +ESTRACE42.5 GM VG; +IRBESARTAN150 MG PO
[2023-01-05] MEDS ORDERED: SODIUM CHLORIDE 0.9% 1000ML 1,000 ML IV SCH (20:15)
[2023-01-05] MEDS ORDERED: SODIUM CHLORIDE FLUSH 10 ML SYR IV PRN (20:15)
[2023-01-05 20:20] LABS: BASOPHILS # (AUTO) 0.1 (0.0-0.1); BASOPHILS % 0.6 % (0.0-1.0); EOSINOPHILS # (AUTO) 0.2 (0.0-0.4); EOSINOPHILS % 1.6 % (0.0-6.0); HEMATOCRIT 38.3 % (34.2-44.1); HEMOGLOBIN 12.6 g/dL (12.0-16.0); LYMPHOCYTES # (AUTO) 3.8 (1.0-3.2); LYMPHOCYTES % 35.8 % (18.0-39.1); MEAN CORPUSCULAR HEMOGLOBIN 29.2 pg (28-32); MEAN CORPUSCULAR HGB CONC 32.9 g/dL (31-35); MEAN CORPUSCULAR VOLUME 88.9 fL (81-99); MONOCYTES # (AUTO) 0.5 (0.2-0.8); MONOCYTES % 4.8 % (4.4-11.3); NEUTROPHILS % 56.9 % (38.7-80.0); PLATELET COUNT 367 x10e3/uL (140-360); RED BLOOD COUNT 4.31 x10e6/uL (3.6-5.1); RED CELL DISTRIBUTION WIDTH 12.3 % (11.7-14.4)
[2023-01-05 20:25] LABS: CLARITY,URINE CLEAR (CLEAR); COLOR,URINE YELLOW (YELLOW)
[2023-01-05 20:26] LABS: AMPHETAMINES SCREEN,URINE NEGATIVE (NEGATIVE); BENZODIAZEPINES SCREEN,URINE NEGATIVE (NEGATIVE); KETONES,URINE NEGATIVE (NEGATIVE); LEUKOCYTE ESTERASE ,URINE NEGATIVE (NEGATIVE); NITRITE,URINE NEGATIVE (NEGATIVE); PHENCYCLIDINE SCREEN,URINE NEGATIVE (NEGATIVE); PROTEIN,URINE DIPSTICK NEGATIVE (NEGATIVE); URINE UROBILINOGEN 0.2 mg/dL (0.2 - 1)
[2023-01-05 20:36] LABS: INR 0.95; PROTHROMBIN TIME 12.9 seconds (11.9-14.5)
[2023-01-05 20:37] LABS: PARTIAL THROMBOPLASTIN TIME 30.3 seconds (23.8-35.5)
[2023-01-05 20:45] LABS: BACTERIA,URINE MODERATE /HPF; EPITHELIAL CELLS,URINE MANY /LPF; RBC,URINE 0-5 /HPF (0-5)
[2023-01-05 20:46] LABS: ALANINE AMINOTRANSFERASE 13 IU/L (0-55); ALBUMIN 3.8 g/dL (3.5-5.0); ALKALINE PHOSPHATASE 101 IU/L (40-150); ANION GAP 13.4 mmol/L (8-16); BLOOD UREA NITROGEN 9 mg/dL (7-26); BUN/CREATININE RATIO 14 (6-25); CALCIUM 9.3 mg/dL (8.4-10.2); CARBON DIOXIDE 26 mmol/L (22-29); CHLORIDE 103 mmol/L (98-107); CREATINE KINASE 91 IU/L (29-168); CREATININE, SERUM 0.65 mg/dL (0.57-1.11); GLUCOSE 122 mg/dL (74-118); POTASSIUM 3.4 mmol/L (3.5-5.1); SODIUM 139 mmol/L (136-145)
[2023-01-06] MEDS ORDERED: MACROBID 100 M100 MG PO (00:11)
[2023-01-06 00:58] VITALS: BP 135/80
== END 2023-01-06 00:56 | disposition home or self-care (01) ==
LOC: ER 19:48
DX: R20.2 Paresthesia of skin (principal); N39.0 Urinary tract infection, site not specified; I10 Essential (primary) hypertension; E78.5 Hyperlipidemia, unspecified; G47.30 Sleep apnea, unspecified; F32.A Depression, unspecified; F17.210 Nicotine dependence, cigarettes, uncomplicated
CPT/HCPCS: 36415; 70450; 71046; 80053; 80307; 81001; 82550; 82553; 84484; 84702; 85025; 85610; 85730; 93005; 93971 ×2; 94760; 99284; J7030

== ENCOUNTER 2024-09-19 15:29 | Emergency (ER) | payer BC ==
[~2024-09-19] VITALS: Ht 157.5 cm; Wt 80.3 kg
[~2024-09-19 15:29] MED LIST changes: +MACROBID 100 M100 MG PO
[2024-09-19 16:09] LABS: BASOPHILS % 0.2 % (0.0-1.0); EOSINOPHILS # (AUTO) 0.1 (0.0-0.4); EOSINOPHILS % 0.5 % (0.0-6.0); HEMATOCRIT 45.9 % (34.2-44.1); HEMOGLOBIN 14.6 g/dL (12.0-16.0); LYMPHOCYTES % 7.4 % (18.0-39.1); MEAN CORPUSCULAR HEMOGLOBIN 29.1 pg (28-32); MEAN CORPUSCULAR HGB CONC 31.8 g/dL (31-35); MEAN CORPUSCULAR VOLUME 91.4 fL (81-99); MONOCYTES # (AUTO) 0.6 (0.2-0.8); MONOCYTES % 4.3 % (4.4-11.3); NEUTROPHILS # (AUTO) 11.6 (2.1-6.9); NEUTROPHILS % 87.1 % (38.7-80.0); PLATELET COUNT 352 x10e3/uL (140-360); RED BLOOD COUNT 5.02 x10e6/uL (3.6-5.1); RED CELL DISTRIBUTION WIDTH 12.4 % (11.7-14.4); WHITE BLOOD COUNT 13.28 x10e3/uL (4.8-10.8)
[2024-09-19] MEDS ORDERED: ACETAMINOPHEN 1000 MG/100 ML 100 ML IV ONE (16:10)
[2024-09-19] MEDS: SODIUM CHLORIDE 0.9% 1000ML 1,000 ML IV STA ×2 (16:14)
[2024-09-19] MEDS: ONDANSETRON HCL INJ 2MG/ML 2ML 2 MG/ML VIAL IV STA (16:14)
[2024-09-19] MEDS: ACETAMINOPHEN 1000 MG/100 ML IV STA (16:14)
[2024-09-19 16:18] LABS: INR 0.95; PROTHROMBIN TIME 13.2 seconds (11.9-14.5)
[2024-09-19 16:19] LABS: PARTIAL THROMBOPLASTIN TIME 26.9 seconds (23.8-35.5)
[2024-09-19 16:27] LABS: CLARITY,URINE HAZY (CLEAR); COLOR,URINE YELLOW (YELLOW)
[2024-09-19 16:28] LABS: ANION GAP 16.9 mmol/L (8-16); BILIRUBIN,TOTAL 1.1 mg/dL (0.2-1.2); CALCIUM 9.5 mg/dL (8.4-10.2); CREATININE, SERUM 0.75 mg/dL (0.57-1.11); MAGNESIUM 1.9 MG/DL (1.3-2.1); POTASSIUM 3.9 mmol/L (3.5-5.1); TOTAL PROTEIN 8.2 g/dL (6.5-8.1)
[2024-09-19 16:28] LABS: BILIRUBIN,URINE SMALL (NEGATIVE); GLUCOSE, URINE NEGATIVE (NEGATIVE); KETONES,URINE TRACE (NEGATIVE); LEUKOCYTE ESTERASE ,URINE NEGATIVE (NEGATIVE); NITRITE,URINE NEGATIVE (NEGATIVE); PH,URINE 5.5 (5 - 7); PROTEIN,URINE DIPSTICK 1+ (NEGATIVE); URINE UROBILINOGEN 0.2 mg/dL (0.2 - 1)
[2024-09-19 16:29] LABS: AMORPHOUS SEDIMENT,URINE FEW (FEW); BACTERIA,URINE MODERATE /HPF; EPITHELIAL CELLS,URINE MODERATE /LPF; MUCUS,URINE FEW (RARE)
[2024-09-19 16:34] LABS: TROPONIN I 0.002 ng/mL (0-0.300)
[2024-09-19] MEDS: LORAZEPAM INJ 2 MG/ML VIAL IV ONE (16:37)
[2024-09-19] MEDS ORDERED: IOPAMIDOL 370 MG/ML 100 ML INFUS..BTL INJ ONE (16:38)
[2024-09-19 16:53] LABS: INFLUENZAE A&B ANTIGEN (RAPID) NEGATIVE (NEGATIVE); RESPIRATORY SYNC. VIRUS NEGATIVE (NEGATIVE)
[2024-09-19] MEDS ORDERED: ONDANSETRON ODT4 MG PO (17:23)
[2024-09-19] MEDS ORDERED: CEFDINIR300 MG PO (17:23)
[2024-09-19] MEDS ORDERED: DICYCLOMINE HCL20 MG PO (17:23)
[2024-09-19 18:00] VITALS: PULSE 100; RESP 16; TEMP 99.2; O2SAT 96
== END 2024-09-19 18:00 | disposition home or self-care (01) ==
LOC: ER 15:41
DX: R50.9 Fever, unspecified (principal); A08.4 Viral intestinal infection, unspecified; R11.2 Nausea with vomiting, unspecified; Z11.52 Encounter for screening for COVID-19
CPT/HCPCS: 36415; 71045; 74177; 80053; 81001; 82550; 83605; 83690; 83735; 84484; 85025; 85610; 85730; 87040; 87400; 87420; 93005; 99284; J0131; J2060; J2405; J2470; J7030; Q9967; U0002